=== PATIENT | male | born 1945 | race Caucasian/White ===

== ENCOUNTER 2018-06-22 10:57 | Inpatient (IN) | payer MEDICARE ==
[2018-06-22] MEDS: IPRATROPIUM (NEB) 0.5 MG/2.5 ML AMP INH (11:28)
[2018-06-22] MEDS: ALBUTEROL 0.5% (NEB) 2.5 MG/0.5 ML AMP INH (11:29)
[2018-06-22 11:34] LABS: AADO2 Arterial 206.4 mmHg (7.0-24.0); Allen Test ACCEPTAB; Arterial Base Excess 4.8 mmol/L (-3.0-3); Arterial COHb 0.7 % (0.0-3.0); Arterial Fraction of Oxyhgb 95.1 % (93.0-99.0); Arterial HCO3 27.8 mmol/L (22.0-26.0); Arterial MetHb 0.2 % (0.0-1.5); Arterial pCO2 35.5 mmhg (35-45); MODE HFNC; Site Left Radial
[2018-06-22 11:47] LABS: ADD MAN DIFF? NO
[2018-06-22] MEDS ORDERED: ACETAMINOPHEN 500 MG TAB PO (11:47)
[2018-06-22 11:49] LABS: WHITE BLOOD COUNT 13.1 10^3/ul (4.8-10.8)
[2018-06-22 11:49] LABS: ABNORMAL IP MESSAGE 1; BASOPHILS % 0.2 % (0.0-2.0); EOSINOPHILS % 0.3 % (0.0-7.0); HEMATOCRIT 30.8 % (42.0-52.0); HEMOGLOBIN 9.3 g/dl (14.0-18.0); LYMPHOCYTES # 0.1 10^3/ul (0.8-2.9); LYMPHOCYTES % 0.8 % (15.0-51.0); MEAN CORPUSCULAR HEMOGLOBIN 28.9 pg (29.0-33.0); MEAN CORPUSCULAR HGB CONC 30.2 g/dl (32.0-37.0); MEAN CORPUSCULAR VOLUME 95.7 fl (82.0-101.0); MEAN PLATELET VOLUME 9.4 fl (7.4-10.4); MONOCYTE # 0.2 10^3/ul (0.3-0.9); MONOCYTES % 1.4 % (0.0-11.0); NEUTROPHIL # 12.5 10^3/ul (1.6-7.5); PLATELET COUNT 150 10^3/UL (140-415); POSITIVE DIFF @See below; RED BLOOD COUNT 3.22 10^6/ul (4.70-6.10); RED CELL DISTRIBUTION WIDTH 16.5 % (11.5-14.5)
[2018-06-22] MEDS ORDERED: ACETAMINOPHEN 325 MG TAB PO (12:00)
[2018-06-22] MEDS ORDERED: ONDANSETRON 4 MG INJ IV (12:00)
[2018-06-22] MEDS: METHYLPREDNISOLONE 125 MG INJ IV (12:14)
[2018-06-22] MEDS: IBUPROFEN 800 MG TAB PO (12:14)
[2018-06-22] MEDS: PIPER-TAZO 3.375 GM IV (PMX) 100 ML IVPB ×2 (12:15→22:23)
[2018-06-22 12:18] LABS: INR 1.53; PROTIME 18.7 Sec (11.9-14.9); PT RATIO 1.5
[2018-06-22 12:19] LABS: PARTIAL THROMBOPLASTIN TIME 29.7 Sec (25.0-35.0)
[2018-06-22 12:27] LABS: ALANINE AMINOTRANSFERASE 35 IU/L (13-69); ALBUMIN 2.7 g/dl (3.3-4.9); ALKALINE PHOSPHATASE 265 IU/L (42-121); AMYLASE 159 U/L (11-123); ANION GAP 14 (8-16); ASPARTATE AMINO TRANSFERASE 55 IU/L (15-46); BILIRUBIN,INDIRECT 0.4 mg/dl (0-1.1); BILIRUBIN,TOTAL 0.4 mg/dl (0.2-1.3); BLOOD UREA NITROGEN 37 mg/dl (7-20); CARBON DIOXIDE 31 mmol/L (21-31); CHLORIDE 98 mmol/L (97-110); CREATININE 0.66 mg/dl (0.61-1.24); GLUCOSE 127 mg/dl (70-220); LIPASE 29 U/L (23-300); POTASSIUM 4.2 mmol/L (3.5-5.1); SODIUM 139 mmol/L (135-144); TOTAL PROTEIN 5.4 g/dl (6.1-8.1)
[2018-06-22 12:39] LABS: TROPONIN-I 0.077 ng/ml (0.000-0.120)
[2018-06-22 12:43] LABS: LACTIC ACID 2.9 mmol/L (0.5-2.0)
[2018-06-22] MEDS: VANCOMYCIN 1 GM (PMX) 250 ML IVPB (13:14)
[2018-06-22] MEDS ORDERED: BISACODYL (EC) 5 MG TAB PO (14:00)
[2018-06-22] MEDS ORDERED: VANCOMYCIN IV PER PHARMACY XX (14:30)
[2018-06-22 15:13] LABS: LACTIC ACID 1.3 mmol/L (0.5-2.0)
[2018-06-22] MEDS: VANCOMYCIN 1 GM in 250 ML IVPB (15:37)
[2018-06-22 16:18] LABS: ADD UMIC YES; UR ASCORBIC ACID 20 mg/dL (NEGATIVE); UR BACTERIA FEW /HPF (NONE SEEN); UR BILIRUBIN (Dip) NEGATIVE (NEGATIVE); UR BLOOD (Dip) 3+ mg/dL (NEGATIVE); UR CLARITY CLOUDY (CLEAR); UR COLOR RED (YELLOW); UR GLUCOSE (Dip) 1+ mg/dL (NEGATIVE); UR KETONES (Dip) NEGATIVE (NEGATIVE); UR LEUKOCYTE ESTERASE (Dip) 3+ Leu/ul (NEGATIVE); UR NITRITE (Dip) NEGATIVE (NEGATIVE); UR RBC > 182 /HPF (0-5); UR SPECIFIC GRAVITY (Dip) 1.016 (1.003-1.030); UR TOTAL PROTEIN (Dip) 2+ mg/dl (NEGATIVE); UR UROBILINOGEN (Dip) 1+ mg/dL (NEGATIVE); UR WBC > 182 /HPF (0-5)
[2018-06-22] MEDS: ASCORBIC ACID 500 MG TAB PO (20:22)
[2018-06-22] MEDS: APIXABAN 5 MG TABLET PO (20:23)
[2018-06-22] MEDS: GABAPENTIN 300 MG CAP PO (20:23)
[2018-06-22] MEDS: SENNA TAB PO (20:23)
[2018-06-22] MEDS: FUROSEMIDE 40 MG TAB PO (20:23)
[2018-06-22] MEDS: FERROUS SULFATE (EC) 325 MG TAB PO (20:23)
[2018-06-22] MEDS: TAMSULOSIN (SR) 0.4 MG CAP PO (20:23)
[2018-06-22] MEDS: ISOSORBIDE DINITRATE 20 MG TAB PO (20:24)
[2018-06-22] MEDS: traMADol 50 MG TAB PO (22:24)
[2018-06-23] MEDS: PIPER-TAZO 3.375 GM IV (PMX) 100 ML IVPB ×3 (05:16→22:16)
[2018-06-23] MEDS: VANCOMYCIN 1.5 GM in SOD CHLORIDE 0.9% 250 ML IVPB ×2 (05:52→18:42)
[2018-06-23 06:24] LABS: ADD MAN DIFF? NO
[2018-06-23 06:30] LABS: WHITE BLOOD COUNT 13.5 10^3/ul (4.8-10.8)
[2018-06-23 06:30] LABS: ABNORMAL IP MESSAGE 1; BASOPHILS % 0.1 % (0.0-2.0); HEMATOCRIT 28.9 % (42.0-52.0); HEMOGLOBIN 8.9 g/dl (14.0-18.0); LYMPHOCYTES # 0.3 10^3/ul (0.8-2.9); LYMPHOCYTES % 2.2 % (15.0-51.0); MEAN CORPUSCULAR HEMOGLOBIN 28.9 pg (29.0-33.0); MEAN CORPUSCULAR HGB CONC 30.8 g/dl (32.0-37.0); MEAN CORPUSCULAR VOLUME 93.8 fl (82.0-101.0); MEAN PLATELET VOLUME 10.1 fl (7.4-10.4); MONOCYTE # 0.4 10^3/ul (0.3-0.9); MONOCYTES % 2.7 % (0.0-11.0); NEUTROPHIL # 12.7 10^3/ul (1.6-7.5); NEUTROPHILS % 94.3 % (39.0-77.0); PLATELET COUNT 147 10^3/UL (140-415); POSITIVE DIFF @See below; RED BLOOD COUNT 3.08 10^6/ul (4.70-6.10); RED CELL DISTRIBUTION WIDTH 16.3 % (11.5-14.5)
[2018-06-23] MEDS: traMADol 50 MG TAB PO ×4 (06:53→22:17)
[2018-06-23 07:17] LABS: ANION GAP 9 (8-16); BLOOD UREA NITROGEN 35 mg/dl (7-20); CALCIUM 8.9 mg/dl (8.4-10.2); CARBON DIOXIDE 33 mmol/L (21-31); CHLORIDE 100 mmol/L (97-110); CREATININE 0.66 mg/dl (0.61-1.24); GLUCOSE 113 mg/dl (70-220); MAGNESIUM 2.2 mg/dl (1.7-2.5); PHOSPHORUS 4.9 mg/dl (2.5-4.9); POTASSIUM 3.6 mmol/L (3.5-5.1); SODIUM 138 mmol/L (135-144)
[2018-06-23 07:36] LABS: AADO2 Arterial 127.1 mmHg (7.0-24.0); Allen Test ACCEPTAB; Arterial Base Excess 5.8 mmol/L (-3.0-3); Arterial Blood Gas Oxygen Sat 94.7 mmHG (95.0-100.0); Arterial COHb 0.6 % (0.0-3.0); Arterial Fraction of Oxyhgb 93.8 % (93.0-99.0); Arterial HCO3 30.2 mmol/L (22.0-26.0); Arterial MetHb 0.3 % (0.0-1.5); Arterial Total Hemglobin 10.7 g/dl (12.0-18.0); Blood Gas IEPAP 15/5; Blood Gas PS 10; MODE MASK - BIPAP; Site Right Radial
[2018-06-23] MEDS: DILTIAZEM (CD) 120 MG CAP PO (10:05)
[2018-06-23] MEDS: FINASTERIDE 5 MG TAB PO (10:06)
[2018-06-23] MEDS: FERROUS SULFATE (EC) 325 MG TAB PO ×2 (10:06→20:31)
[2018-06-23] MEDS: ASCORBIC ACID 500 MG TAB PO ×2 (10:06→20:31)
[2018-06-23] MEDS: MULTIVITAMINS THERAPEUTIC TAB PO (10:06)
[2018-06-23] MEDS: DOCUSATE SODIUM 100 MG CAP PO (10:06)
[2018-06-23] MEDS: FUROSEMIDE 40 MG TAB PO ×2 (10:06→20:32)
[2018-06-23] MEDS: ISOSORBIDE DINITRATE 20 MG TAB PO ×2 (10:06→20:31)
[2018-06-23] MEDS: METOPROLOL (XL) 25 MG TAB PO (10:07)
[2018-06-23] MEDS: APIXABAN 5 MG TABLET PO ×2 (10:07→20:32)
[2018-06-23] MEDS: GABAPENTIN 300 MG CAP PO ×3 (10:07→20:31)
[2018-06-23] MEDS: predniSONE 10 MG TAB PO (10:07)
[2018-06-23] MEDS: COLLAGENASE 5 GM (UD JAR) TOP (12:30)
[2018-06-23] MEDS: SENNA TAB PO (20:31)
[2018-06-23] MEDS: TAMSULOSIN (SR) 0.4 MG CAP PO (20:31)
[2018-06-23] MEDS: ALBUTEROL/IPRATROPIUM (NEB) 3 ML AMP HHN (21:13)
[2018-06-24 04:48] LABS: ADD MAN DIFF? NO
[2018-06-24 04:50] LABS: WHITE BLOOD COUNT 15.3 10^3/ul (4.8-10.8)
[2018-06-24 04:50] LABS: BASOPHILS % 0.1 % (0.0-2.0); HEMATOCRIT 28.6 % (42.0-52.0); HEMOGLOBIN 8.8 g/dl (14.0-18.0); LYMPHOCYTES # 0.6 10^3/ul (0.8-2.9); LYMPHOCYTES % 4.1 % (15.0-51.0); MEAN CORPUSCULAR HGB CONC 30.8 g/dl (32.0-37.0); MEAN CORPUSCULAR VOLUME 94.4 fl (82.0-101.0); MONOCYTE # 0.8 10^3/ul (0.3-0.9); MONOCYTES % 5.4 % (0.0-11.0); NEUTROPHIL # 13.7 10^3/ul (1.6-7.5); NEUTROPHILS % 89.4 % (39.0-77.0); PLATELET COUNT 179 10^3/UL (140-415); RED BLOOD COUNT 3.03 10^6/ul (4.70-6.10); RED CELL DISTRIBUTION WIDTH 16.1 % (11.5-14.5)
[2018-06-24] MEDS: PIPER-TAZO 3.375 GM IV (PMX) 100 ML IVPB ×3 (05:10→21:06)
[2018-06-24] MEDS: traMADol 50 MG TAB PO ×2 (05:11→09:12)
[2018-06-24 05:14] LABS: ANION GAP 11 (8-16); BLOOD UREA NITROGEN 40 mg/dl (7-20); CALCIUM 8.9 mg/dl (8.4-10.2); CARBON DIOXIDE 30 mmol/L (21-31); CHLORIDE 100 mmol/L (97-110); GLUCOSE 129 mg/dl (70-220); MAGNESIUM 2.1 mg/dl (1.7-2.5); PHOSPHORUS 3.4 mg/dl (2.5-4.9); POTASSIUM 3.5 mmol/L (3.5-5.1); SODIUM 137 mmol/L (135-144)
[2018-06-24 05:15] LABS: ALANINE AMINOTRANSFERASE 63 IU/L (13-69); ALBUMIN 2.5 g/dl (3.3-4.9); ALBUMIN/GLOBULIN RATIO 0.89; ALKALINE PHOSPHATASE 179 IU/L (42-121); ANION GAP 9 (8-16); ASPARTATE AMINO TRANSFERASE 62 IU/L (15-46); BILIRUBIN,INDIRECT 0.1 mg/dl (0-1.1); BILIRUBIN,TOTAL 0.1 mg/dl (0.2-1.3); BLOOD UREA NITROGEN 38 mg/dl (7-20); CALCIUM 8.9 mg/dl (8.4-10.2); CARBON DIOXIDE 33 mmol/L (21-31); CHLORIDE 100 mmol/L (97-110); CHOL/HDL RATIO 5.9 RATIO; CHOLESTEROL 77 mg/dl (100-200); GLUCOSE 130 mg/dl (70-220); HDL CHOLESTEROL 13 mg/dl (31-75); LDL CHOLESTEROL,CALCULATED 41 mg/dl; POTASSIUM 3.4 mmol/L (3.5-5.1); SODIUM 139 mmol/L (135-144); TOTAL PROTEIN 5.3 g/dl (6.1-8.1); TRIGLYCERIDES 115 mg/dl (0-149)
[2018-06-24 05:22] LABS: B-TYPE NATRIURETIC PEPTIDE 12500 PG/ML (0-125)
[2018-06-24 05:23] LABS: CREATINE KINASE < 20 IU/L (23-200)
[2018-06-24 05:24] LABS: CK-MB 1.89 ng/ml (0.0-2.4); TROPONIN-I 0.066 ng/ml (0.000-0.120)
[2018-06-24 05:24] LABS: VANCOMYCIN,TROUGH 25.3 ug/ml (10.0-20.0)
[2018-06-24 05:28] LABS: FREE T4 (FREE THYROXINE) 0.89 ng/dl (0.78-2.44)
[2018-06-24 05:44] LABS: THYROID STIMULATING HORMONE 0.613 MIU/L (0.465-4.680)
[2018-06-24] MEDS: METOLAZONE 10 MG TAB PO (09:00)
[2018-06-24] MEDS: FINASTERIDE 5 MG TAB PO (09:10)
[2018-06-24] MEDS: MULTIVITAMINS THERAPEUTIC TAB PO (09:10)
[2018-06-24] MEDS: FUROSEMIDE 40 MG TAB PO ×2 (09:10→21:07)
[2018-06-24] MEDS: predniSONE 10 MG TAB PO (09:10)
[2018-06-24] MEDS: LISINOPRIL 5 MG TAB PO (09:11)
[2018-06-24] MEDS: GABAPENTIN 300 MG CAP PO ×3 (09:11→21:08)
[2018-06-24] MEDS: APIXABAN 5 MG TABLET PO ×2 (09:11→21:08)
[2018-06-24] MEDS: ISOSORBIDE DINITRATE 20 MG TAB PO ×2 (09:11→21:08)
[2018-06-24] MEDS: COLLAGENASE 5 GM (UD JAR) TOP (09:11)
[2018-06-24] MEDS: DOCUSATE SODIUM 100 MG CAP PO (09:11)
[2018-06-24] MEDS: ASCORBIC ACID 500 MG TAB PO ×2 (09:11→21:08)
[2018-06-24] MEDS: SPIRONOLACTONE 25 MG TAB PO (09:11)
[2018-06-24] MEDS: FERROUS SULFATE (EC) 325 MG TAB PO ×2 (09:11→21:08)
[2018-06-24] MEDS: METOPROLOL (XL) 25 MG TAB PO (09:11)
[2018-06-24] MEDS: VANCOMYCIN 1 GM 250 ML IVPB (09:12)
[2018-06-24] MEDS: POTASSIUM CHLORIDE (SR) 20 MEQ TAB PO (13:46)
[2018-06-24] MEDS: FLUCONAZOLE 100 MG TAB PO (15:00)
[2018-06-24] MEDS: TAMSULOSIN (SR) 0.4 MG CAP PO (21:08)
[2018-06-24] MEDS: SENNA TAB PO (21:08)
[2018-06-24] MEDS: CASPOFUNGIN 70 MG in SOD CHLORIDE 0.9% 250 ML IVPB (23:48)
[2018-06-25] MEDS: PIPER-TAZO 3.375 GM IV (PMX) 100 ML IVPB ×3 (05:19→21:35)
[2018-06-25] MEDS: traMADol 50 MG TAB PO ×3 (06:19→19:35)
[2018-06-25] MEDS: VANCOMYCIN 1.5 GM in SOD CHLORIDE 0.9% 250 ML IVPB (06:22)
[2018-06-25] MEDS: ISOSORBIDE DINITRATE 20 MG TAB PO ×2 (09:00→20:52)
[2018-06-25] MEDS: LISINOPRIL 5 MG TAB PO (09:00)
[2018-06-25] MEDS: METOPROLOL (XL) 25 MG TAB PO (09:00)
[2018-06-25] MEDS: ASCORBIC ACID 500 MG TAB PO ×2 (09:27→20:51)
[2018-06-25] MEDS: predniSONE 10 MG TAB PO (09:28)
[2018-06-25] MEDS: FINASTERIDE 5 MG TAB PO (09:28)
[2018-06-25] MEDS: GABAPENTIN 300 MG CAP PO ×3 (09:28→20:52)
[2018-06-25] MEDS: MULTIVITAMINS THERAPEUTIC TAB PO (09:28)
[2018-06-25] MEDS: DOCUSATE SODIUM 100 MG CAP PO (09:28)
[2018-06-25] MEDS: FERROUS SULFATE (EC) 325 MG TAB PO ×2 (09:28→20:51)
[2018-06-25] MEDS: APIXABAN 5 MG TABLET PO ×2 (09:28→20:51)
[2018-06-25] MEDS: FUROSEMIDE 40 MG TAB PO (09:29)
[2018-06-25] MEDS: SPIRONOLACTONE 25 MG TAB PO (09:29)
[2018-06-25] MEDS: SODIUM HYPOCHLORITE (1/40) 1 APPLIC BTL IRR (09:29)
[2018-06-25] MEDS: COLLAGENASE 5 GM (UD JAR) TOP (09:30)
[2018-06-25 09:35] LABS: ADD MAN DIFF? NO
[2018-06-25 09:36] LABS: WHITE BLOOD COUNT 11.2 10^3/ul (4.8-10.8)
[2018-06-25 09:36] LABS: BASOPHILS % 0.3 % (0.0-2.0); EOSINOPHILS % 0.4 % (0.0-7.0); HEMATOCRIT 30.7 % (42.0-52.0); HEMOGLOBIN 9.1 g/dl (14.0-18.0); LYMPHOCYTES % 8.5 % (15.0-51.0); MEAN CORPUSCULAR HEMOGLOBIN 28.4 pg (29.0-33.0); MEAN CORPUSCULAR HGB CONC 29.6 g/dl (32.0-37.0); MEAN CORPUSCULAR VOLUME 95.9 fl (82.0-101.0); MEAN PLATELET VOLUME 9.6 fl (7.4-10.4); MONOCYTE # 0.8 10^3/ul (0.3-0.9); MONOCYTES % 7.4 % (0.0-11.0); NEUTROPHIL # 8.9 10^3/ul (1.6-7.5); NEUTROPHILS % 79.7 % (39.0-77.0); NUCLEATED RED BLOOD CELLS% 0.3 /100WBC (0.0-0.0); PLATELET COUNT 177 10^3/UL (140-415); RED CELL DISTRIBUTION WIDTH 16.1 % (11.5-14.5)
[2018-06-25 09:56] LABS: ANION GAP 9 (8-16); BLOOD UREA NITROGEN 37 mg/dl (7-20); CALCIUM 8.8 mg/dl (8.4-10.2); CARBON DIOXIDE 32 mmol/L (21-31); CHLORIDE 101 mmol/L (97-110); CREATININE 0.74 mg/dl (0.61-1.24); GLUCOSE 91 mg/dl (70-220); PHOSPHORUS 3.3 mg/dl (2.5-4.9); POTASSIUM 3.9 mmol/L (3.5-5.1); SODIUM 138 mmol/L (135-144)
[2018-06-25 10:05] LABS: B-TYPE NATRIURETIC PEPTIDE 9300 PG/ML (0-125)
[2018-06-25] MEDS: FUROSEMIDE 20 MG INJ IV (12:26)
[2018-06-25] MEDS: oxyCODONE 5 MG TAB PO (18:02)
[2018-06-25] MEDS: TAMSULOSIN (SR) 0.4 MG CAP PO (20:51)
[2018-06-25] MEDS: SENNA TAB PO (20:52)
[2018-06-25] MEDS: CASPOFUNGIN 50 MG in SOD CHLORIDE 0.9% 250 ML IVPB (23:59)
[2018-06-26] MEDS: traMADol 50 MG TAB PO ×2 (00:08→22:29)
[2018-06-26] MEDS: ALBUTEROL/IPRATROPIUM (NEB) 3 ML AMP HHN (03:02)
[2018-06-26] MEDS: oxyCODONE 5 MG TAB PO (04:13)
[2018-06-26 05:46] LABS: ADD MAN DIFF? NO
[2018-06-26 05:51] LABS: WHITE BLOOD COUNT 12.1 10^3/ul (4.8-10.8)
[2018-06-26 05:51] LABS: BASOPHILS % 0.2 % (0.0-2.0); EOSINOPHILS # 0.1 10^3/ul (0.0-0.5); EOSINOPHILS % 0.7 % (0.0-7.0); HEMATOCRIT 31.4 % (42.0-52.0); HEMOGLOBIN 9.4 g/dl (14.0-18.0); LYMPHOCYTES # 0.9 10^3/ul (0.8-2.9); LYMPHOCYTES % 7.4 % (15.0-51.0); MEAN CORPUSCULAR HEMOGLOBIN 28.5 pg (29.0-33.0); MEAN CORPUSCULAR HGB CONC 29.9 g/dl (32.0-37.0); MEAN CORPUSCULAR VOLUME 95.2 fl (82.0-101.0); MEAN PLATELET VOLUME 9.9 fl (7.4-10.4); MONOCYTE # 0.8 10^3/ul (0.3-0.9); MONOCYTES % 6.3 % (0.0-11.0); NEUTROPHIL # 9.8 10^3/ul (1.6-7.5); NEUTROPHILS % 80.8 % (39.0-77.0); NUCLEATED RED BLOOD CELLS% 0.2 /100WBC (0.0-0.0); PLATELET COUNT 201 10^3/UL (140-415); RED CELL DISTRIBUTION WIDTH 16.2 % (11.5-14.5)
[2018-06-26] MEDS: PIPER-TAZO 3.375 GM IV (PMX) 100 ML IVPB ×3 (06:10→21:39)
[2018-06-26 06:45] LABS: ANION GAP 9 (8-16); BLOOD UREA NITROGEN 29 mg/dl (7-20); CALCIUM 8.8 mg/dl (8.4-10.2); CARBON DIOXIDE 32 mmol/L (21-31); CHLORIDE 101 mmol/L (97-110); CREATININE 0.67 mg/dl (0.61-1.24); GLUCOSE 103 mg/dl (70-220); PHOSPHORUS 2.8 mg/dl (2.5-4.9); POTASSIUM 3.5 mmol/L (3.5-5.1); SODIUM 138 mmol/L (135-144)
[2018-06-26] MEDS: VANCOMYCIN 1.5 GM in SOD CHLORIDE 0.9% 250 ML IVPB (07:07)
[2018-06-26] MEDS: FUROSEMIDE 20 MG INJ IV (09:39)
[2018-06-26] MEDS: APIXABAN 5 MG TABLET PO ×2 (09:39→21:38)
[2018-06-26] MEDS: ISOSORBIDE DINITRATE 20 MG TAB PO ×2 (09:39→21:38)
[2018-06-26] MEDS: METOPROLOL (XL) 25 MG TAB PO (09:39)
[2018-06-26] MEDS: LISINOPRIL 5 MG TAB PO (09:40)
[2018-06-26] MEDS: FERROUS SULFATE (EC) 325 MG TAB PO ×2 (09:40→21:38)
[2018-06-26] MEDS: SPIRONOLACTONE 25 MG TAB PO (09:40)
[2018-06-26] MEDS: GABAPENTIN 300 MG CAP PO ×3 (09:40→21:38)
[2018-06-26] MEDS: DOCUSATE SODIUM 100 MG CAP PO (09:40)
[2018-06-26] MEDS: COLLAGENASE 5 GM (UD JAR) TOP (09:40)
[2018-06-26] MEDS: MULTIVITAMINS THERAPEUTIC TAB PO (09:40)
[2018-06-26] MEDS: predniSONE 10 MG TAB PO (09:40)
[2018-06-26] MEDS: ASCORBIC ACID 500 MG TAB PO ×2 (09:40→21:38)
[2018-06-26] MEDS: FINASTERIDE 5 MG TAB PO (09:40)
[2018-06-26] MEDS: SODIUM HYPOCHLORITE (1/40) 1 APPLIC BTL IRR (09:41)
[2018-06-26] MEDS: TAMSULOSIN (SR) 0.4 MG CAP PO (21:38)
[2018-06-26] MEDS: SENNA TAB PO (21:38)
[2018-06-26] MEDS: CASPOFUNGIN 50 MG in SOD CHLORIDE 0.9% 250 ML IVPB (22:28)
[2018-06-27] MEDS: traMADol 50 MG TAB PO ×2 (04:19→21:49)
[2018-06-27] MEDS: VANCOMYCIN 1.5 GM in SOD CHLORIDE 0.9% 250 ML IVPB (06:06)
[2018-06-27] MEDS: PIPER-TAZO 3.375 GM IV (PMX) 100 ML IVPB ×3 (06:06→21:30)
[2018-06-27 06:23] LABS: ADD MAN DIFF? NO; BASOPHILS % 0.3 % (0.0-2.0); EOSINOPHILS # 0.1 10^3/ul (0.0-0.5); EOSINOPHILS % 0.8 % (0.0-7.0); HEMOGLOBIN 9.3 g/dl (14.0-18.0); LYMPHOCYTES # 1.2 10^3/ul (0.8-2.9); LYMPHOCYTES % 11.4 % (15.0-51.0); MEAN CORPUSCULAR HEMOGLOBIN 28.5 pg (29.0-33.0); MEAN CORPUSCULAR VOLUME 95.1 fl (82.0-101.0); MEAN PLATELET VOLUME 9.5 fl (7.4-10.4); MONOCYTE # 0.5 10^3/ul (0.3-0.9); NEUTROPHIL # 8.2 10^3/ul (1.6-7.5); NEUTROPHILS % 78.1 % (39.0-77.0); PLATELET COUNT 222 10^3/UL (140-415); RED BLOOD COUNT 3.26 10^6/ul (4.70-6.10); RED CELL DISTRIBUTION WIDTH 16.4 % (11.5-14.5)
[2018-06-27 06:23] LABS: WHITE BLOOD COUNT 10.5 10^3/ul (4.8-10.8)
[2018-06-27 07:00] LABS: ANION GAP 8 (8-16); BLOOD UREA NITROGEN 22 mg/dl (7-20); CALCIUM 8.8 mg/dl (8.4-10.2); CARBON DIOXIDE 35 mmol/L (21-31); CHLORIDE 102 mmol/L (97-110); CREATININE 0.64 mg/dl (0.61-1.24); GLUCOSE 83 mg/dl (70-220); PHOSPHORUS 2.7 mg/dl (2.5-4.9); POTASSIUM 3.7 mmol/L (3.5-5.1); SODIUM 141 mmol/L (135-144)
[2018-06-27] MEDS: APIXABAN 5 MG TABLET PO ×2 (08:15→21:30)
[2018-06-27] MEDS: FERROUS SULFATE (EC) 325 MG TAB PO ×2 (08:15→21:29)
[2018-06-27] MEDS: METOPROLOL (XL) 25 MG TAB PO (08:15)
[2018-06-27] MEDS: FUROSEMIDE 20 MG INJ IV (08:15)
[2018-06-27] MEDS: DOCUSATE SODIUM 100 MG CAP PO (08:16)
[2018-06-27] MEDS: LISINOPRIL 5 MG TAB PO (08:16)
[2018-06-27] MEDS: SPIRONOLACTONE 25 MG TAB PO (08:16)
[2018-06-27] MEDS: MULTIVITAMINS THERAPEUTIC TAB PO (08:16)
[2018-06-27] MEDS: predniSONE 10 MG TAB PO (08:16)
[2018-06-27] MEDS: ASCORBIC ACID 500 MG TAB PO ×2 (08:17→21:29)
[2018-06-27] MEDS: FINASTERIDE 5 MG TAB PO (08:17)
[2018-06-27] MEDS: GABAPENTIN 300 MG CAP PO ×3 (08:17→21:29)
[2018-06-27] MEDS: ISOSORBIDE DINITRATE 20 MG TAB PO ×2 (08:17→21:30)
[2018-06-27] MEDS: COLLAGENASE 5 GM (UD JAR) TOP (08:18)
[2018-06-27] MEDS: SODIUM HYPOCHLORITE (1/40) 1 APPLIC BTL IRR (08:19)
[2018-06-27] MEDS: ALBUTEROL/IPRATROPIUM (NEB) 3 ML AMP HHN ×2 (16:00→21:35)
[2018-06-27] MEDS: SENNA TAB PO (21:29)
[2018-06-27] MEDS: TAMSULOSIN (SR) 0.4 MG CAP PO (21:29)
[2018-06-28] MEDS: CASPOFUNGIN 50 MG in SOD CHLORIDE 0.9% 250 ML IVPB ×2 (01:15→23:15)
[2018-06-28] MEDS: traMADol 50 MG TAB PO ×2 (04:43→13:26)
[2018-06-28] MEDS: PIPER-TAZO 3.375 GM IV (PMX) 100 ML IVPB ×3 (05:54→21:13)
[2018-06-28 06:15] LABS: ADD MAN DIFF? NO
[2018-06-28 06:36] LABS: WHITE BLOOD COUNT 10.1 10^3/ul (4.8-10.8)
[2018-06-28 06:36] LABS: BASOPHILS % 0.4 % (0.0-2.0); EOSINOPHILS # 0.1 10^3/ul (0.0-0.5); EOSINOPHILS % 1.1 % (0.0-7.0); HEMATOCRIT 30.3 % (42.0-52.0); HEMOGLOBIN 9.2 g/dl (14.0-18.0); LYMPHOCYTES # 1.6 10^3/ul (0.8-2.9); LYMPHOCYTES % 15.6 % (15.0-51.0); MEAN CORPUSCULAR HEMOGLOBIN 29.1 pg (29.0-33.0); MEAN CORPUSCULAR HGB CONC 30.4 g/dl (32.0-37.0); MEAN CORPUSCULAR VOLUME 95.9 fl (82.0-101.0); MEAN PLATELET VOLUME 9.8 fl (7.4-10.4); MONOCYTE # 0.4 10^3/ul (0.3-0.9); MONOCYTES % 4.3 % (0.0-11.0); NEUTROPHIL # 7.5 10^3/ul (1.6-7.5); NEUTROPHILS % 74.1 % (39.0-77.0); PLATELET COUNT 241 10^3/UL (140-415); RED BLOOD COUNT 3.16 10^6/ul (4.70-6.10); RED CELL DISTRIBUTION WIDTH 16.4 % (11.5-14.5)
[2018-06-28 06:41] LABS: VANCOMYCIN,TROUGH 12.9 ug/ml (10.0-20.0)
[2018-06-28 06:54] LABS: ANION GAP 10 (8-16); BLOOD UREA NITROGEN 20 mg/dl (7-20); CALCIUM 8.8 mg/dl (8.4-10.2); CARBON DIOXIDE 33 mmol/L (21-31); CHLORIDE 100 mmol/L (97-110); CREATININE 0.72 mg/dl (0.61-1.24); GLUCOSE 90 mg/dl (70-220); MAGNESIUM 1.9 mg/dl (1.7-2.5); PHOSPHORUS 2.8 mg/dl (2.5-4.9); POTASSIUM 3.7 mmol/L (3.5-5.1); SODIUM 139 mmol/L (135-144)
[2018-06-28] MEDS: VANCOMYCIN 1.5 GM in SOD CHLORIDE 0.9% 250 ML IVPB (07:03)
[2018-06-28] MEDS: FERROUS SULFATE (EC) 325 MG TAB PO ×2 (09:05→21:13)
[2018-06-28] MEDS: DOCUSATE SODIUM 100 MG CAP PO (09:05)
[2018-06-28] MEDS: COLLAGENASE 5 GM (UD JAR) TOP (09:05)
[2018-06-28] MEDS: ASCORBIC ACID 500 MG TAB PO ×2 (09:05→21:13)
[2018-06-28] MEDS: MULTIVITAMINS THERAPEUTIC TAB PO (09:05)
[2018-06-28] MEDS: GABAPENTIN 300 MG CAP PO ×3 (09:05→21:13)
[2018-06-28] MEDS: predniSONE 10 MG TAB PO (09:05)
[2018-06-28] MEDS: APIXABAN 5 MG TABLET PO ×2 (09:05→21:13)
[2018-06-28] MEDS: SPIRONOLACTONE 25 MG TAB PO (09:05)
[2018-06-28] MEDS: FINASTERIDE 5 MG TAB PO (09:06)
[2018-06-28] MEDS: ISOSORBIDE DINITRATE 20 MG TAB PO ×2 (09:07→21:13)
[2018-06-28] MEDS: LISINOPRIL 5 MG TAB PO (09:07)
[2018-06-28] MEDS: METOPROLOL (XL) 25 MG TAB PO (09:07)
[2018-06-28] MEDS: SODIUM HYPOCHLORITE (1/40) 1 APPLIC BTL IRR (09:11)
[2018-06-28] MEDS: FUROSEMIDE 20 MG INJ IV (09:11)
[2018-06-28] MEDS: SENNA TAB PO (21:13)
[2018-06-28] MEDS: TAMSULOSIN (SR) 0.4 MG CAP PO (21:13)
[2018-06-29] MEDS: ALBUTEROL/IPRATROPIUM (NEB) 3 ML AMP HHN ×2 (02:42→21:35)
[2018-06-29] MEDS: traMADol 50 MG TAB PO ×3 (02:59→22:11)
[2018-06-29] MEDS: PIPER-TAZO 3.375 GM IV (PMX) 100 ML IVPB (05:55)
[2018-06-29] MEDS: VANCOMYCIN 1.5 GM in SOD CHLORIDE 0.9% 250 ML IVPB (06:38)
[2018-06-29] MEDS: MULTIVITAMINS THERAPEUTIC TAB PO (08:36)
[2018-06-29] MEDS: COLLAGENASE 5 GM (UD JAR) TOP (08:36)
[2018-06-29] MEDS: METOPROLOL (XL) 25 MG TAB PO (08:36)
[2018-06-29] MEDS: GABAPENTIN 300 MG CAP PO ×3 (08:37→21:24)
[2018-06-29] MEDS: DOCUSATE SODIUM 100 MG CAP PO (08:37)
[2018-06-29] MEDS: ASCORBIC ACID 500 MG TAB PO ×2 (08:37→21:23)
[2018-06-29] MEDS: APIXABAN 5 MG TABLET PO ×2 (08:37→21:24)
[2018-06-29] MEDS: SPIRONOLACTONE 25 MG TAB PO (08:37)
[2018-06-29] MEDS: LISINOPRIL 5 MG TAB PO (08:37)
[2018-06-29] MEDS: FINASTERIDE 5 MG TAB PO (08:37)
[2018-06-29] MEDS: ISOSORBIDE DINITRATE 20 MG TAB PO ×2 (08:37→21:26)
[2018-06-29] MEDS: predniSONE 10 MG TAB PO (08:37)
[2018-06-29] MEDS: FERROUS SULFATE (EC) 325 MG TAB PO ×2 (08:37→21:24)
[2018-06-29] MEDS: FUROSEMIDE 20 MG INJ IV (08:38)
[2018-06-29] MEDS: SODIUM HYPOCHLORITE (1/40) 1 APPLIC BTL IRR (08:38)
[2018-06-29] MEDS: TAMSULOSIN (SR) 0.4 MG CAP PO (21:24)
[2018-06-29] MEDS: SENNA TAB PO (21:24)
[2018-06-29] MEDS: CASPOFUNGIN 50 MG in SOD CHLORIDE 0.9% 250 ML IVPB (23:11)
[2018-06-30 06:00] LABS: ADD MAN DIFF? NO
[2018-06-30 06:04] LABS: WHITE BLOOD COUNT 10.9 10^3/ul (4.8-10.8)
[2018-06-30 06:04] LABS: BASOPHILS % 0.3 % (0.0-2.0); EOSINOPHILS % 0.4 % (0.0-7.0); HEMATOCRIT 32.2 % (42.0-52.0); HEMOGLOBIN 9.5 g/dl (14.0-18.0); LYMPHOCYTES # 1.4 10^3/ul (0.8-2.9); LYMPHOCYTES % 12.6 % (15.0-51.0); MEAN CORPUSCULAR HEMOGLOBIN 28.5 pg (29.0-33.0); MEAN CORPUSCULAR HGB CONC 29.5 g/dl (32.0-37.0); MEAN CORPUSCULAR VOLUME 96.7 fl (82.0-101.0); MEAN PLATELET VOLUME 9.9 fl (7.4-10.4); MONOCYTE # 0.5 10^3/ul (0.3-0.9); MONOCYTES % 4.5 % (0.0-11.0); NEUTROPHIL # 8.6 10^3/ul (1.6-7.5); NEUTROPHILS % 78.6 % (39.0-77.0); NUCLEATED RED BLOOD CELLS% 0.2 /100WBC (0.0-0.0); PLATELET COUNT 219 10^3/UL (140-415); RED BLOOD COUNT 3.33 10^6/ul (4.70-6.10); RED CELL DISTRIBUTION WIDTH 16.9 % (11.5-14.5)
[2018-06-30] MEDS: VANCOMYCIN 1.5 GM in SOD CHLORIDE 0.9% 250 ML IVPB (06:30)
[2018-06-30 07:25] LABS: ANION GAP 12 (8-16); BLOOD UREA NITROGEN 21 mg/dl (7-20); CARBON DIOXIDE 35 mmol/L (21-31); CHLORIDE 99 mmol/L (97-110); CREATININE 0.58 mg/dl (0.61-1.24); GLUCOSE 89 mg/dl (70-220); PHOSPHORUS 3.6 mg/dl (2.5-4.9); SODIUM 142 mmol/L (135-144)
[2018-06-30] MEDS: FERROUS SULFATE (EC) 325 MG TAB PO ×2 (08:15→21:22)
[2018-06-30] MEDS: SODIUM HYPOCHLORITE (1/40) 1 APPLIC BTL IRR (08:15)
[2018-06-30] MEDS: MULTIVITAMINS THERAPEUTIC TAB PO (08:15)
[2018-06-30] MEDS: DOCUSATE SODIUM 100 MG CAP PO (08:15)
[2018-06-30] MEDS: FUROSEMIDE 20 MG INJ IV (08:15)
[2018-06-30] MEDS: APIXABAN 5 MG TABLET PO ×2 (08:16→21:22)
[2018-06-30] MEDS: predniSONE 10 MG TAB PO (08:16)
[2018-06-30] MEDS: GABAPENTIN 300 MG CAP PO ×3 (08:16→21:22)
[2018-06-30] MEDS: COLLAGENASE 5 GM (UD JAR) TOP (08:16)
[2018-06-30] MEDS: ISOSORBIDE DINITRATE 20 MG TAB PO ×2 (08:16→21:23)
[2018-06-30] MEDS: FINASTERIDE 5 MG TAB PO (08:16)
[2018-06-30] MEDS: LISINOPRIL 5 MG TAB PO (08:16)
[2018-06-30] MEDS: SPIRONOLACTONE 25 MG TAB PO (08:16)
[2018-06-30] MEDS: ASCORBIC ACID 500 MG TAB PO ×2 (08:16→21:23)
[2018-06-30] MEDS: METOPROLOL (XL) 25 MG TAB PO (08:17)
[2018-06-30] MEDS: traMADol 50 MG TAB PO ×2 (11:59→17:18)
[2018-06-30] MEDS: TAMSULOSIN (SR) 0.4 MG CAP PO (21:23)
[2018-06-30] MEDS: SENNA TAB PO (21:23)
[2018-06-30] MEDS: CASPOFUNGIN 50 MG in SOD CHLORIDE 0.9% 250 ML IVPB (22:42)
[2018-07-01] MEDS: traMADol 50 MG TAB PO (00:51)
[2018-07-01] MEDS: VANCOMYCIN 1.5 GM in SOD CHLORIDE 0.9% 250 ML IVPB (05:46)
[2018-07-01 06:50] LABS: ADD MAN DIFF? NO
[2018-07-01 06:59] LABS: WHITE BLOOD COUNT 11.7 10^3/ul (4.8-10.8)
[2018-07-01 06:59] LABS: BASOPHILS % 0.3 % (0.0-2.0); EOSINOPHILS # 0.1 10^3/ul (0.0-0.5); EOSINOPHILS % 0.6 % (0.0-7.0); HEMATOCRIT 33.7 % (42.0-52.0); HEMOGLOBIN 10.2 g/dl (14.0-18.0); LYMPHOCYTES # 1.6 10^3/ul (0.8-2.9); LYMPHOCYTES % 13.4 % (15.0-51.0); MEAN CORPUSCULAR HEMOGLOBIN 29.5 pg (29.0-33.0); MEAN CORPUSCULAR HGB CONC 30.3 g/dl (32.0-37.0); MEAN CORPUSCULAR VOLUME 97.4 fl (82.0-101.0); MEAN PLATELET VOLUME 9.9 fl (7.4-10.4); MONOCYTE # 0.8 10^3/ul (0.3-0.9); MONOCYTES % 6.7 % (0.0-11.0); NEUTROPHIL # 8.9 10^3/ul (1.6-7.5); NEUTROPHILS % 75.7 % (39.0-77.0); NUCLEATED RED BLOOD CELLS% 0.3 /100WBC (0.0-0.0); PLATELET COUNT 246 10^3/UL (140-415); RED BLOOD COUNT 3.46 10^6/ul (4.70-6.10); RED CELL DISTRIBUTION WIDTH 17.2 % (11.5-14.5)
[2018-07-01 07:50] LABS: ANION GAP 11 (8-16); BLOOD UREA NITROGEN 23 mg/dl (7-20); CALCIUM 9.2 mg/dl (8.4-10.2); CARBON DIOXIDE 34 mmol/L (21-31); CHLORIDE 103 mmol/L (97-110); CREATININE 0.66 mg/dl (0.61-1.24); GLUCOSE 88 mg/dl (70-220); PHOSPHORUS 3.4 mg/dl (2.5-4.9); POTASSIUM 4.2 mmol/L (3.5-5.1); SODIUM 144 mmol/L (135-144)
[2018-07-01] MEDS: COLLAGENASE 5 GM (UD JAR) TOP (09:56)
[2018-07-01] MEDS: ISOSORBIDE DINITRATE 20 MG TAB PO ×2 (09:57→22:30)
[2018-07-01] MEDS: METOPROLOL (XL) 25 MG TAB PO (09:57)
[2018-07-01] MEDS: LISINOPRIL 5 MG TAB PO (09:58)
[2018-07-01] MEDS: ASCORBIC ACID 500 MG TAB PO ×2 (09:58→22:30)
[2018-07-01] MEDS: predniSONE 10 MG TAB PO (09:58)
[2018-07-01] MEDS: GABAPENTIN 300 MG CAP PO ×3 (09:58→22:30)
[2018-07-01] MEDS: DOCUSATE SODIUM 100 MG CAP PO (09:58)
[2018-07-01] MEDS: APIXABAN 5 MG TABLET PO ×2 (09:58→21:00)
[2018-07-01] MEDS: oxyCODONE 5 MG TAB PO (09:58)
[2018-07-01] MEDS: FINASTERIDE 5 MG TAB PO (09:58)
[2018-07-01] MEDS: MULTIVITAMINS THERAPEUTIC TAB PO (09:58)
[2018-07-01] MEDS: SPIRONOLACTONE 25 MG TAB PO (09:58)
[2018-07-01] MEDS: FERROUS SULFATE (EC) 325 MG TAB PO ×2 (09:58→22:30)
[2018-07-01] MEDS: SODIUM HYPOCHLORITE (1/40) 1 APPLIC BTL IRR (09:59)
[2018-07-01] MEDS: FUROSEMIDE 20 MG INJ IV (09:59)
[2018-07-01] MEDS: CEFEPIME 1GM/50 ML (PMX) 50 ML IVPB ×2 (15:57→22:31)
[2018-07-01] MEDS: SENNA TAB PO (22:30)
[2018-07-01] MEDS: TAMSULOSIN (SR) 0.4 MG CAP PO (22:31)
[2018-07-02] MEDS: ALBUTEROL/IPRATROPIUM (NEB) 3 ML AMP HHN ×2 (00:21→12:10)
[2018-07-02] MEDS: CASPOFUNGIN 50 MG in SOD CHLORIDE 0.9% 250 ML IVPB (00:44)
[2018-07-02] MEDS: NA PHOSPHATE/BIPHOS 133 ML ENEMA PR (00:48)
[2018-07-02 07:01] LABS: ADD MAN DIFF? NO
[2018-07-02 07:06] LABS: BASOPHIL # 0.1 10^3/ul (0.0-0.1); BASOPHILS % 0.4 % (0.0-2.0); EOSINOPHILS % 0.3 % (0.0-7.0); HEMATOCRIT 35.3 % (42.0-52.0); HEMOGLOBIN 10.5 g/dl (14.0-18.0); LYMPHOCYTES # 1.5 10^3/ul (0.8-2.9); LYMPHOCYTES % 10.2 % (15.0-51.0); MEAN CORPUSCULAR HEMOGLOBIN 29.3 pg (29.0-33.0); MEAN CORPUSCULAR HGB CONC 29.7 g/dl (32.0-37.0); MEAN CORPUSCULAR VOLUME 98.6 fl (82.0-101.0); MEAN PLATELET VOLUME 9.8 fl (7.4-10.4); MONOCYTES % 6.6 % (0.0-11.0); NEUTROPHIL # 11.9 10^3/ul (1.6-7.5); NEUTROPHILS % 80.3 % (39.0-77.0); NUCLEATED RED BLOOD CELLS # 0.1 10^3/ul (0.0-0.0); NUCLEATED RED BLOOD CELLS% 0.4 /100WBC (0.0-0.0); PLATELET COUNT 233 10^3/UL (140-415); RED BLOOD COUNT 3.58 10^6/ul (4.70-6.10); RED CELL DISTRIBUTION WIDTH 17.4 % (11.5-14.5)
[2018-07-02 07:06] LABS: WHITE BLOOD COUNT 14.8 10^3/ul (4.8-10.8)
[2018-07-02 07:21] LABS: VANCOMYCIN,TROUGH 18.8 ug/ml (10.0-20.0)
[2018-07-02 07:47] LABS: ANION GAP 13 (8-16); BLOOD UREA NITROGEN 23 mg/dl (7-20); CALCIUM 9.5 mg/dl (8.4-10.2); CARBON DIOXIDE 33 mmol/L (21-31); CHLORIDE 103 mmol/L (97-110); CREATININE 0.65 mg/dl (0.61-1.24); GLUCOSE 91 mg/dl (70-220); PHOSPHORUS 3.4 mg/dl (2.5-4.9); SODIUM 145 mmol/L (135-144)
[2018-07-02 08:32] LABS: ALANINE AMINOTRANSFERASE 37 IU/L (13-69); ALBUMIN 2.9 g/dl (3.3-4.9); ALKALINE PHOSPHATASE 109 IU/L (42-121); ASPARTATE AMINO TRANSFERASE 42 IU/L (15-46); BILIRUBIN,INDIRECT 0.2 mg/dl (0-1.1); BILIRUBIN,TOTAL 0.2 mg/dl (0.2-1.3); TOTAL PROTEIN 5.5 g/dl (6.1-8.1)
[2018-07-02] MEDS: SODIUM HYPOCHLORITE (1/40) 1 APPLIC BTL IRR (10:20)
[2018-07-02] MEDS: FUROSEMIDE 40 MG INJ IV ×2 (10:20→16:57)
[2018-07-02] MEDS: COLLAGENASE 5 GM (UD JAR) TOP (10:20)
[2018-07-02] MEDS: CEFEPIME 1GM/50 ML (PMX) 50 ML IVPB (10:20)
[2018-07-02] MEDS: SPIRONOLACTONE 25 MG TAB PO (10:21)
[2018-07-02] MEDS: METOPROLOL (XL) 25 MG TAB PO (10:21)
[2018-07-02] MEDS: GABAPENTIN 300 MG CAP PO ×2 (10:21→13:00)
[2018-07-02] MEDS: LISINOPRIL 5 MG TAB PO (10:21)
[2018-07-02] MEDS: APIXABAN 5 MG TABLET PO (10:21)
[2018-07-02] MEDS: FINASTERIDE 5 MG TAB PO (10:22)
[2018-07-02] MEDS: ISOSORBIDE DINITRATE 20 MG TAB PO (10:22)
[2018-07-02] MEDS: MULTIVITAMINS THERAPEUTIC TAB PO (10:22)
[2018-07-02] MEDS: DOCUSATE SODIUM 100 MG CAP PO (10:22)
[2018-07-02] MEDS: predniSONE 10 MG TAB PO (10:23)
[2018-07-02] MEDS: FERROUS SULFATE (EC) 325 MG TAB PO (10:23)
[2018-07-02] MEDS: ASCORBIC ACID 500 MG TAB PO (10:23)
[2018-07-02] MEDS: VANCOMYCIN 1 GM 250 ML IVPB (12:28)
[2018-07-02] MEDS: oxyCODONE 5 MG TAB PO (16:56)
== END 2018-07-02 17:44 | DRG 871 ==
LOC: E/R 10:57 → TEL 11:50
PROC: 5A09458 Assistance with Respiratory Ventilation, 24-96 Consecutive Hours, Intermittent Positive Airway Pressure (ICD-10-PCS; principal; 2018-06-23)
DX: A41.9 Sepsis, unspecified organism (principal); L89.154 Pressure ulcer of sacral region, stage 4; J96.01 Acute respiratory failure with hypoxia; J18.9 Pneumonia, unspecified organism; I50.43 Acute on chronic combined systolic (congestive) and diastolic (congestive) heart failure; E87.2 Acidosis; I13.0 Hypertensive heart and chronic kidney disease with heart failure and stage 1 through stage 4 chronic kidney disease, or unspecified chronic kidney disease; J44.1 Chronic obstructive pulmonary disease with (acute) exacerbation; B49 Unspecified mycosis; L03.319 Cellulitis of trunk, unspecified; N18.3 Chronic kidney disease, stage 3 (moderate); G89.4 Chronic pain syndrome; I25.10 Atherosclerotic heart disease of native coronary artery without angina pectoris; I48.0 Paroxysmal atrial fibrillation; N40.1 Benign prostatic hyperplasia with lower urinary tract symptoms; R33.8 Other retention of urine; N50.89 Other specified disorders of the male genital organs; K80.50 Calculus of bile duct without cholangitis or cholecystitis without obstruction; R65.20 Severe sepsis without septic shock; D64.9 Anemia, unspecified; Z95.5 Presence of coronary angioplasty implant and graft; Z74.01 Bed confinement status; Z95.810 Presence of automatic (implantable) cardiac defibrillator
CPT/HCPCS: 36600; 71045; 74176; 80048; 80053; 80061; 80076; 80202; 81001; 82150; 82550; 82553; 82803; 82962; 83605; 83690; 83735; 83880; 84100; 84439; 84443; 84484; 85025; 85610; 85730; 87040; 87070; 87081; 87086; 92610; 93005; 93306; 94640; 94644; 94660; 94664; 97110; 97162; 97530; 99291-25

== ENCOUNTER 2018-08-20 17:50 | Inpatient (IN) | payer MEDICARE, OTHER ==
[~2018-08-20 17:50] MED LIST: ETOMIDATE 20 MG INJ; SUCCINYLCHOLINE CHLORIDE 100 MG/5 ML SYG IV
[2018-08-20 18:10] LABS: AADO2 Arterial 616.3 mmHg (7.0-24.0); Allen Test ACCEPTAB; Arterial Base Excess 2.3 mmol/L (-3.0-3); Arterial Blood Gas Oxygen Sat 86.9 mmHG (95.0-100.0); Arterial COHb 0.9 % (0.0-3.0); Arterial Fraction of Oxyhgb 85.9 % (93.0-99.0); Arterial HCO3 27.6 mmol/L (22.0-26.0); Arterial MetHb 0.3 % (0.0-1.5); Arterial Total Hemglobin 14.2 g/dl (12.0-18.0); Arterial pCO2 45.5 mmhg (35-45); Blood Gas IEPAP 15/5; Blood Gas PS 10; MODE MASK - BIPAP; Site Right Radial
[2018-08-20] MEDS: NITROGLYCERIN (SL) 0.4 MG TAB SL (18:13)
[2018-08-20] MEDS: SODIUM CHLORIDE 0.9% 1L BAG IV* (18:13)
[2018-08-20] MEDS: CEFEPIME 2GM/50 ML (PMX) 50 ML IVPB (18:13)
[2018-08-20 18:15] LABS: ADD MAN DIFF? NO
[2018-08-20] MEDS: ALBUTEROL 0.5% (NEB) 2.5 MG/0.5 ML AMP INH (18:16)
[2018-08-20 18:20] LABS: WHITE BLOOD COUNT 13.2 10^3/ul (4.8-10.8)
[2018-08-20 18:20] LABS: BASOPHIL # 0.1 10^3/ul (0.0-0.1); BASOPHILS % 0.5 % (0.0-2.0); EOSINOPHILS % 0.2 % (0.0-7.0); HEMATOCRIT 43.3 % (42.0-52.0); HEMOGLOBIN 13.4 g/dl (14.0-18.0); LYMPHOCYTES # 1.1 10^3/ul (0.8-2.9); MEAN CORPUSCULAR HGB CONC 30.9 g/dl (32.0-37.0); MEAN CORPUSCULAR VOLUME 90.4 fl (82.0-101.0); MEAN PLATELET VOLUME 9.2 fl (7.4-10.4); MONOCYTE # 1.2 10^3/ul (0.3-0.9); MONOCYTES % 8.7 % (0.0-11.0); NEUTROPHIL # 10.8 10^3/ul (1.6-7.5); NEUTROPHILS % 82.1 % (39.0-77.0); PLATELET COUNT 296 10^3/UL (140-415); RED BLOOD COUNT 4.79 10^6/ul (4.70-6.10); RED CELL DISTRIBUTION WIDTH 15.6 % (11.5-14.5)
[2018-08-20 18:36] LABS: PARTIAL THROMBOPLASTIN TIME 33.3 Sec (23.0-35.0)
[2018-08-20 18:38] LABS: ALANINE AMINOTRANSFERASE 25 IU/L (13-69); ALBUMIN 3.3 g/dl (3.3-4.9); ALBUMIN/GLOBULIN RATIO 0.84; ALKALINE PHOSPHATASE 160 IU/L (42-121); ANION GAP 12 (5-13); ASPARTATE AMINO TRANSFERASE 36 IU/L (15-46); BILIRUBIN,INDIRECT 0.8 mg/dl (0-1.1); BILIRUBIN,TOTAL 0.8 mg/dl (0.2-1.3); BLOOD UREA NITROGEN 33 mg/dl (7-20); CALCIUM 9.8 mg/dl (8.4-10.2); CARBON DIOXIDE 29 mmol/L (21-31); CHLORIDE 97 mmol/L (97-110); CREATININE 0.85 mg/dl (0.61-1.24); GLUCOSE 181 mg/dl (70-220); SODIUM 138 mmol/L (135-144); TOTAL PROTEIN 7.2 g/dl (6.1-8.1)
[2018-08-20 18:49] LABS: TROPONIN-I 0.048 ng/ml (0.000-0.120)
[2018-08-20 18:51] LABS: INR 1.51; PROTIME 18.5 Sec (11.9-14.9); PT RATIO 1.4
[2018-08-20] MEDS: VANCOMYCIN 1 GM (PMX) 250 ML IVPB (19:04)
[2018-08-20] MEDS ORDERED: IBUPROFEN 600 MG TAB PO (22:00)
[2018-08-20] MEDS ORDERED: PIPER-TAZO 3.375 GM IV (PMX) 100 ML IVPB (22:00)
[2018-08-20] MEDS ORDERED: NA PHOSPHATE/BIPHOS 133 ML ENEMA PR (22:00)
[2018-08-20] MEDS ORDERED: MAGNESIUM HYDROXIDE 30ML CUP PO (22:00)
[2018-08-20] MEDS ORDERED: NACL 0.9% 3 ML SYG IV (22:00)
[2018-08-20] MEDS ORDERED: BISACODYL (EC) 5 MG TAB PO (22:00)
[2018-08-20] MEDS ORDERED: ONDANSETRON 4 MG INJ IV (22:00)
[2018-08-20] MEDS: ALBUTEROL/IPRATROPIUM (NEB) 3 ML AMP NEB (22:27)
[2018-08-20] MEDS ORDERED: PROPOFOL 100 ML (22:49)
[2018-08-20] MEDS: PROPOFOL 100 ML IV (22:57)
[2018-08-20 23:07] LABS: LACTIC ACID 1.7 mmol/L (0.5-2.0)
[2018-08-20] MEDS ORDERED: MIDAZOLAM 5 MG/ML 1 ML ×2 (23:23→23:27)
[2018-08-20] MEDS: MIDAZOLAM 1 MG/ML 5 ML INJ IV (23:40)
[2018-08-20] MEDS: FUROSEMIDE 40 MG INJ IV (23:40)
[2018-08-20] MEDS ORDERED: VANCOMYCIN IV PER PHARMACY XX (23:59)
[2018-08-21] MEDS ORDERED: PROPOFOL 100 ML IV
[2018-08-21 00:04] LABS: AADO2 Arterial 589.6 mmHg (7.0-24.0); Allen Test ACCEPTAB; Arterial Base Excess 0.2 mmol/L (-3.0-3); Arterial Blood Gas Oxygen Sat 95.6 mmHG (95.0-100.0); Arterial COHb 0.3 % (0.0-3.0); Arterial Fraction of Oxyhgb 95.1 % (93.0-99.0); Arterial HCO3 25.3 mmol/L (22.0-26.0); Arterial MetHb 0.2 % (0.0-1.5); Arterial Total Hemglobin 12.3 g/dl (12.0-18.0); Arterial pCO2 43.1 mmhg (35-45); Blood Gas Low PEEP Setting 0 cmH2O; MODE VENT - AC; Site Right Radial
[2018-08-21] MEDS ORDERED: NORepinephrine 8MG/250 ML (PMX 250 ML (00:50)
[2018-08-21] MEDS: PROPOFOL 100 ML IV ×4 (01:00→19:44)
[2018-08-21] MEDS: NORepinephrine 8MG/250 ML (PMX 250 ML IV (01:00)
[2018-08-21] MEDS: SOD CHLORIDE 0.9% 1,000 ML IV ×2 (02:05→10:41)
[2018-08-21 05:06] LABS: ADD MAN DIFF? NO
[2018-08-21 05:08] LABS: ABNORMAL IP MESSAGE 1; BASOPHIL # 0.1 10^3/ul (0.0-0.1); BASOPHILS % 0.3 % (0.0-2.0); HEMATOCRIT 38.5 % (42.0-52.0); HEMOGLOBIN 11.9 g/dl (14.0-18.0); LYMPHOCYTES # 1.2 10^3/ul (0.8-2.9); LYMPHOCYTES % 5.2 % (15.0-51.0); MEAN CORPUSCULAR HEMOGLOBIN 27.9 pg (29.0-33.0); MEAN CORPUSCULAR HGB CONC 30.9 g/dl (32.0-37.0); MEAN CORPUSCULAR VOLUME 90.2 fl (82.0-101.0); MEAN PLATELET VOLUME 9.4 fl (7.4-10.4); MONOCYTE # 1.8 10^3/ul (0.3-0.9); MONOCYTES % 7.8 % (0.0-11.0); NEUTROPHIL # 19.8 10^3/ul (1.6-7.5); NEUTROPHILS % 85.9 % (39.0-77.0); PLATELET COUNT 276 10^3/UL (140-415); POSITIVE DIFF @See below; RED BLOOD COUNT 4.27 10^6/ul (4.70-6.10); RED CELL DISTRIBUTION WIDTH 15.7 % (11.5-14.5)
[2018-08-21 05:08] LABS: WHITE BLOOD COUNT 23.1 10^3/ul (4.8-10.8)
[2018-08-21 05:46] LABS: ANION GAP 11 (5-13); BLOOD UREA NITROGEN 33 mg/dl (7-20); CALCIUM 9.1 mg/dl (8.4-10.2); CARBON DIOXIDE 25 mmol/L (21-31); CHLORIDE 105 mmol/L (97-110); GLUCOSE 118 mg/dl (70-220); POTASSIUM 3.4 mmol/L (3.5-5.1); SODIUM 141 mmol/L (135-144)
[2018-08-21] MEDS: POTASSIUM CHLORIDE 20 MEQ POWDER FOR ORAL SOLN GTB (07:04)
[2018-08-21 07:34] LABS: LACTIC ACID 1.3 mmol/L (0.5-2.0)
[2018-08-21] MEDS: ENOXAPARIN 40 MG/0.4 ML SYG SC (08:21)
[2018-08-21] MEDS: ASCORBIC ACID 500 MG TAB PO ×2 (09:28→20:36)
[2018-08-21] MEDS: MULTIVITAMINS THERAPEUTIC TAB PO (09:28)
[2018-08-21] MEDS: FAMOTIDINE 20 MG TAB PO ×2 (09:28→20:36)
[2018-08-21] MEDS: FINASTERIDE 5 MG TAB PO (09:28)
[2018-08-21] MEDS: FERROUS SULFATE (EC) 325 MG TAB PO ×2 (09:28→20:36)
[2018-08-21 10:03] LABS: AADO2 Arterial 465.8 mmHg (7.0-24.0); Allen Test ACCEPTAB; Arterial Base Excess -0.2 mmol/L (-3.0-3); Arterial Blood Gas Oxygen Sat 98.8 mmHG (95.0-100.0); Arterial COHb 0.1 % (0.0-3.0); Arterial Fraction of Oxyhgb 98.4 % (93.0-99.0); Arterial HCO3 23.4 mmol/L (22.0-26.0); Arterial MetHb 0.3 % (0.0-1.5); Arterial Total Hemglobin 12.1 g/dl (12.0-18.0); Arterial pCO2 34.9 mmhg (35-45); MODE VENT - AC; Site Right Radial
[2018-08-21] MEDS: VANCOMYCIN 1.5 GM in SOD CHLORIDE 0.9% 250 ML IVPB (12:55)
[2018-08-21] MEDS ORDERED: FUROSEMIDE 20 MG INJ IM (13:30)
[2018-08-21] MEDS: FUROSEMIDE 20 MG INJ IV (14:06)
[2018-08-21] MEDS: SOD CHLORIDE 0.9% 100 ML (15:41)
[2018-08-21] MEDS: IOHEXOL 100 ML (15:42)
[2018-08-21] MEDS: ASPIRIN 81 MG TAB NGT (17:38)
[2018-08-21] MEDS: TAMSULOSIN (SR) 0.4 MG CAP PO (20:36)
[2018-08-21] MEDS: PIPER-TAZO 3.375 GM IV (PMX) 100 ML IVPB (22:01)
[2018-08-22] MEDS: PROPOFOL 100 ML IV ×5 (01:45→22:17)
[2018-08-22 05:16] LABS: ADD MAN DIFF? NO
[2018-08-22 05:20] LABS: WHITE BLOOD COUNT 16.6 10^3/ul (4.8-10.8)
[2018-08-22 05:20] LABS: BASOPHIL # 0.1 10^3/ul (0.0-0.1); BASOPHILS % 0.4 % (0.0-2.0); EOSINOPHILS # 0.1 10^3/ul (0.0-0.5); EOSINOPHILS % 0.4 % (0.0-7.0); HEMATOCRIT 36.9 % (42.0-52.0); HEMOGLOBIN 11.5 g/dl (14.0-18.0); LYMPHOCYTES # 0.9 10^3/ul (0.8-2.9); LYMPHOCYTES % 5.3 % (15.0-51.0); MEAN CORPUSCULAR HGB CONC 31.2 g/dl (32.0-37.0); MEAN CORPUSCULAR VOLUME 89.8 fl (82.0-101.0); MEAN PLATELET VOLUME 9.6 fl (7.4-10.4); MONOCYTE # 1.4 10^3/ul (0.3-0.9); MONOCYTES % 8.6 % (0.0-11.0); NEUTROPHIL # 14.1 10^3/ul (1.6-7.5); NEUTROPHILS % 84.8 % (39.0-77.0); PLATELET COUNT 250 10^3/UL (140-415); RED BLOOD COUNT 4.11 10^6/ul (4.70-6.10); RED CELL DISTRIBUTION WIDTH 15.7 % (11.5-14.5)
[2018-08-22] MEDS: PIPER-TAZO 3.375 GM IV (PMX) 100 ML IVPB ×4 (05:42→23:57)
[2018-08-22 05:46] LABS: ANION GAP 8 (5-13); BLOOD UREA NITROGEN 29 mg/dl (7-20); CALCIUM 9.5 mg/dl (8.4-10.2); CARBON DIOXIDE 26 mmol/L (21-31); CHLORIDE 110 mmol/L (97-110); CREATININE 0.83 mg/dl (0.61-1.24); GLUCOSE 120 mg/dl (70-220); MAGNESIUM 2.2 mg/dl (1.7-2.5); PHOSPHORUS 3.2 mg/dl (2.5-4.9); POTASSIUM 3.2 mmol/L (3.5-5.1); SODIUM 144 mmol/L (135-144)
[2018-08-22] MEDS: POTASSIUM CHLORIDE 20 MEQ POWDER FOR ORAL SOLN NGT ×2 (07:06)
[2018-08-22] MEDS: FUROSEMIDE 20 MG INJ IV (09:31)
[2018-08-22] MEDS: ASPIRIN 81 MG TAB NGT (09:32)
[2018-08-22] MEDS: FERROUS SULFATE (EC) 325 MG TAB PO ×2 (09:32→20:49)
[2018-08-22] MEDS: FINASTERIDE 5 MG TAB PO (09:32)
[2018-08-22] MEDS: ASCORBIC ACID 500 MG TAB PO ×2 (09:32→20:49)
[2018-08-22] MEDS: FAMOTIDINE 20 MG TAB PO ×2 (09:32→20:49)
[2018-08-22] MEDS: MULTIVITAMINS THERAPEUTIC TAB PO (09:32)
[2018-08-22] MEDS: ENOXAPARIN 40 MG/0.4 ML SYG SC (09:33)
[2018-08-22] MEDS: POTASSIUM CHLORIDE 20 MEQ POWDER FOR ORAL SOLN GTB (11:47)
[2018-08-22] MEDS: VANCOMYCIN 1.5 GM in SOD CHLORIDE 0.9% 250 ML IVPB (14:25)
[2018-08-22] MEDS: MUPIROCIN 2% 22 GM OINT TOP (20:49)
[2018-08-22] MEDS: TAMSULOSIN (SR) 0.4 MG CAP PO (20:49)
[2018-08-23 04:06] LABS: ADD UMIC YES; UR ASCORBIC ACID 40 mg/dL (NEGATIVE); UR BILIRUBIN (Dip) NEGATIVE (NEGATIVE); UR BLOOD (Dip) NEGATIVE (NEGATIVE); UR CLARITY SLIGHTLY CLOUDY (CLEAR); UR COLOR YELLOW (YELLOW); UR GLUCOSE (Dip) NEGATIVE (NEGATIVE); UR KETONES (Dip) NEGATIVE (NEGATIVE); UR LEUKOCYTE ESTERASE (Dip) TRACE Leu/ul (NEGATIVE); UR MUCUS FEW /HPF (NONE SEEN); UR NITRITE (Dip) NEGATIVE (NEGATIVE); UR RBC 2 /HPF (0-5); UR SPECIFIC GRAVITY (Dip) 1.026 (1.003-1.030); UR TOTAL PROTEIN (Dip) NEGATIVE (NEGATIVE); UR UROBILINOGEN (Dip) NEGATIVE (NEGATIVE); UR WBC 1 /HPF (0-5)
[2018-08-23 04:36] LABS: SODIUM,URINE RANDOM 28 mmol/L (30-90)
[2018-08-23 04:36] LABS: CREATININE,URINE RANDOM 67.36 mg/dl (20-370)
[2018-08-23] MEDS: PROPOFOL 100 ML IV ×4 (04:59→21:58)
[2018-08-23 05:36] LABS: ADD MAN DIFF? NO
[2018-08-23 05:43] LABS: WHITE BLOOD COUNT 15.8 10^3/ul (4.8-10.8)
[2018-08-23 05:43] LABS: BASOPHIL # 0.1 10^3/ul (0.0-0.1); BASOPHILS % 0.5 % (0.0-2.0); EOSINOPHILS # 0.1 10^3/ul (0.0-0.5); EOSINOPHILS % 0.6 % (0.0-7.0); HEMATOCRIT 34.9 % (42.0-52.0); HEMOGLOBIN 10.8 g/dl (14.0-18.0); LYMPHOCYTES % 6.3 % (15.0-51.0); MEAN CORPUSCULAR HEMOGLOBIN 27.8 pg (29.0-33.0); MEAN CORPUSCULAR HGB CONC 30.9 g/dl (32.0-37.0); MEAN CORPUSCULAR VOLUME 89.7 fl (82.0-101.0); MEAN PLATELET VOLUME 9.6 fl (7.4-10.4); MONOCYTE # 1.3 10^3/ul (0.3-0.9); NEUTROPHIL # 13.3 10^3/ul (1.6-7.5); PLATELET COUNT 236 10^3/UL (140-415); RED BLOOD COUNT 3.89 10^6/ul (4.70-6.10)
[2018-08-23 06:18] LABS: ANION GAP 7 (5-13); BLOOD UREA NITROGEN 28 mg/dl (7-20); CALCIUM 9.4 mg/dl (8.4-10.2); CARBON DIOXIDE 25 mmol/L (21-31); CHLORIDE 114 mmol/L (97-110); CREATININE 0.78 mg/dl (0.61-1.24); GLUCOSE 118 mg/dl (70-220); MAGNESIUM 2.4 mg/dl (1.7-2.5); PHOSPHORUS 3.4 mg/dl (2.5-4.9); POTASSIUM 3.7 mmol/L (3.5-5.1); SODIUM 146 mmol/L (135-144)
[2018-08-23] MEDS: PIPER-TAZO 3.375 GM IV (PMX) 100 ML IVPB ×4 (06:28→23:54)
[2018-08-23] MEDS: FAMOTIDINE 20 MG TAB PO ×2 (08:38→20:29)
[2018-08-23] MEDS: ASPIRIN 81 MG TAB NGT (08:38)
[2018-08-23] MEDS: MULTIVITAMINS THERAPEUTIC TAB PO (08:38)
[2018-08-23] MEDS: ASCORBIC ACID 500 MG TAB PO ×2 (08:39→20:29)
[2018-08-23] MEDS: FUROSEMIDE 20 MG INJ IV (08:39)
[2018-08-23] MEDS: FINASTERIDE 5 MG TAB PO (08:39)
[2018-08-23] MEDS: FERROUS SULFATE (EC) 325 MG TAB PO ×2 (08:39→20:29)
[2018-08-23] MEDS: MUPIROCIN 2% 22 GM OINT TOP ×2 (08:39→20:29)
[2018-08-23] MEDS: ENOXAPARIN 40 MG/0.4 ML SYG SC (08:41)
[2018-08-23] MEDS: VANCOMYCIN 1.5 GM in SOD CHLORIDE 0.9% 250 ML IVPB (13:01)
[2018-08-23] MEDS: TAMSULOSIN (SR) 0.4 MG CAP PO (20:29)
[2018-08-24] MEDS: PROPOFOL 100 ML IV (04:15)
[2018-08-24 05:02] LABS: WHITE BLOOD COUNT 11.3 10^3/ul (4.8-10.8)
[2018-08-24 05:02] LABS: ADD MAN DIFF? NO; BASOPHIL # 0.1 10^3/ul (0.0-0.1); BASOPHILS % 0.7 % (0.0-2.0); EOSINOPHILS # 0.2 10^3/ul (0.0-0.5); EOSINOPHILS % 1.5 % (0.0-7.0); HEMATOCRIT 35.8 % (42.0-52.0); LYMPHOCYTES # 1.3 10^3/ul (0.8-2.9); LYMPHOCYTES % 11.3 % (15.0-51.0); MEAN CORPUSCULAR HEMOGLOBIN 27.6 pg (29.0-33.0); MEAN CORPUSCULAR HGB CONC 30.7 g/dl (32.0-37.0); MEAN CORPUSCULAR VOLUME 89.7 fl (82.0-101.0); MEAN PLATELET VOLUME 9.1 fl (7.4-10.4); MONOCYTE # 0.9 10^3/ul (0.3-0.9); MONOCYTES % 7.8 % (0.0-11.0); NEUTROPHIL # 8.8 10^3/ul (1.6-7.5); PLATELET COUNT 240 10^3/UL (140-415); RED BLOOD COUNT 3.99 10^6/ul (4.70-6.10); RED CELL DISTRIBUTION WIDTH 15.9 % (11.5-14.5)
[2018-08-24 05:32] LABS: ANION GAP 9 (5-13); BLOOD UREA NITROGEN 26 mg/dl (7-20); CALCIUM 9.6 mg/dl (8.4-10.2); CARBON DIOXIDE 26 mmol/L (21-31); CHLORIDE 114 mmol/L (97-110); CREATININE 0.77 mg/dl (0.61-1.24); GLUCOSE 116 mg/dl (70-220); MAGNESIUM 2.3 mg/dl (1.7-2.5); PHOSPHORUS 3.7 mg/dl (2.5-4.9); POTASSIUM 3.2 mmol/L (3.5-5.1); SODIUM 149 mmol/L (135-144)
[2018-08-24] MEDS: PIPER-TAZO 3.375 GM IV (PMX) 100 ML IVPB ×3 (06:19→18:28)
[2018-08-24] MEDS ORDERED: POTASSIUM CHLORIDE 20 MEQ POWDER FOR ORAL SOLN NGT (08:05)
[2018-08-24] MEDS: ENOXAPARIN 40 MG/0.4 ML SYG SC (09:36)
[2018-08-24] MEDS: ASCORBIC ACID 500 MG TAB PO ×2 (09:37→20:53)
[2018-08-24] MEDS: FAMOTIDINE 20 MG TAB PO ×2 (09:37→20:53)
[2018-08-24] MEDS: ASPIRIN 81 MG TAB NGT (09:37)
[2018-08-24] MEDS: MULTIVITAMINS THERAPEUTIC TAB PO (09:37)
[2018-08-24] MEDS: MUPIROCIN 2% 22 GM OINT TOP ×2 (09:37→20:52)
[2018-08-24] MEDS: FINASTERIDE 5 MG TAB PO (09:37)
[2018-08-24] MEDS: FERROUS SULFATE (EC) 325 MG TAB PO ×2 (09:37→20:53)
[2018-08-24] MEDS: FUROSEMIDE 20 MG INJ IV (09:37)
[2018-08-24] MEDS: POTASSIUM CHLORIDE 20 MEQ POWDER FOR ORAL SOLN GTB (09:38)
[2018-08-24 09:44] LABS: AADO2 Arterial 120.1 mmHg (7.0-24.0); Allen Test ACCEPTAB; Arterial Base Excess 0.9 mmol/L (-3.0-3); Arterial Blood Gas Oxygen Sat 96.6 mmHG (95.0-100.0); Arterial COHb 0.5 % (0.0-3.0); Arterial Fraction of Oxyhgb 95.8 % (93.0-99.0); Arterial HCO3 25.1 mmol/L (22.0-26.0); Arterial MetHb 0.3 % (0.0-1.5); Arterial Total Hemglobin 12.7 g/dl (12.0-18.0); Arterial pCO2 38.7 mmhg (35-45); Blood Gas PS 10; MODE VENT - CPAP; Site Right Radial
[2018-08-24] MEDS: morphine 2 MG INJ IV ×3 (12:44→22:18)
[2018-08-24 12:47] LABS: VANCOMYCIN,TROUGH 12.8 ug/ml (10.0-20.0)
[2018-08-24] MEDS: DEXTROSE 5% 1,000 ML IV (14:02)
[2018-08-24 14:21] LABS: ANION GAP 11 (5-13); BLOOD UREA NITROGEN 26 mg/dl (7-20); CALCIUM 9.8 mg/dl (8.4-10.2); CARBON DIOXIDE 22 mmol/L (21-31); CHLORIDE 116 mmol/L (97-110); CREATININE 0.82 mg/dl (0.61-1.24); GLUCOSE 125 mg/dl (70-220); POTASSIUM 3.7 mmol/L (3.5-5.1); SODIUM 149 mmol/L (135-144)
[2018-08-24] MEDS: VANCOMYCIN 1.5 GM in SOD CHLORIDE 0.9% 250 ML IVPB (14:50)
[2018-08-24 15:21] LABS: CREATININE, RANDOM URINE 62 mg/dL (20-320); MICROALBUMIN/CREATININE RATIO 32 (<30)
[2018-08-24] MEDS: TAMSULOSIN (SR) 0.4 MG CAP PO (20:53)
[2018-08-25] MEDS: PIPER-TAZO 3.375 GM IV (PMX) 100 ML IVPB ×4 (00:38→18:16)
[2018-08-25] MEDS: morphine 2 MG INJ IV ×3 (04:01→14:33)
[2018-08-25 05:03] LABS: ADD MAN DIFF? NO
[2018-08-25 05:07] LABS: BASOPHIL # 0.1 10^3/ul (0.0-0.1); BASOPHILS % 0.8 % (0.0-2.0); EOSINOPHILS # 0.1 10^3/ul (0.0-0.5); EOSINOPHILS % 1.1 % (0.0-7.0); HEMATOCRIT 35.2 % (42.0-52.0); HEMOGLOBIN 10.4 g/dl (14.0-18.0); LYMPHOCYTES # 1.3 10^3/ul (0.8-2.9); LYMPHOCYTES % 12.7 % (15.0-51.0); MEAN CORPUSCULAR HEMOGLOBIN 27.3 pg (29.0-33.0); MEAN CORPUSCULAR HGB CONC 29.5 g/dl (32.0-37.0); MEAN CORPUSCULAR VOLUME 92.4 fl (82.0-101.0); MEAN PLATELET VOLUME 9.6 fl (7.4-10.4); MONOCYTE # 0.7 10^3/ul (0.3-0.9); MONOCYTES % 7.2 % (0.0-11.0); NEUTROPHIL # 7.8 10^3/ul (1.6-7.5); NEUTROPHILS % 77.5 % (39.0-77.0); PLATELET COUNT 235 10^3/UL (140-415); RED BLOOD COUNT 3.81 10^6/ul (4.70-6.10); RED CELL DISTRIBUTION WIDTH 15.9 % (11.5-14.5)
[2018-08-25 05:41] LABS: ANION GAP 8 (5-13); BLOOD UREA NITROGEN 28 mg/dl (7-20); CALCIUM 9.4 mg/dl (8.4-10.2); CARBON DIOXIDE 24 mmol/L (21-31); CHLORIDE 116 mmol/L (97-110); CREATININE 0.76 mg/dl (0.61-1.24); GLUCOSE 92 mg/dl (70-220); MAGNESIUM 2.2 mg/dl (1.7-2.5); PHOSPHORUS 3.8 mg/dl (2.5-4.9); POTASSIUM 3.6 mmol/L (3.5-5.1); SODIUM 148 mmol/L (135-144)
[2018-08-25] MEDS: FINASTERIDE 5 MG TAB PO (07:59)
[2018-08-25] MEDS: FAMOTIDINE 20 MG TAB PO ×2 (07:59→22:11)
[2018-08-25] MEDS: FUROSEMIDE 20 MG INJ IV (07:59)
[2018-08-25] MEDS: ASPIRIN 81 MG TAB NGT (07:59)
[2018-08-25] MEDS: FERROUS SULFATE (EC) 325 MG TAB PO ×2 (07:59→22:11)
[2018-08-25] MEDS: MULTIVITAMINS THERAPEUTIC TAB PO (08:00)
[2018-08-25] MEDS: ASCORBIC ACID 500 MG TAB PO ×2 (08:00→22:11)
[2018-08-25] MEDS: ENOXAPARIN 40 MG/0.4 ML SYG SC (08:01)
[2018-08-25 08:21] LABS: PROCALCITONIN 0.97 ng/mL (<0.10)
[2018-08-25] MEDS: MUPIROCIN 2% 22 GM OINT TOP ×2 (08:53→21:00)
[2018-08-25] MEDS: D5W + KCL 20 MEQ 1,000 ML IV ×2 (09:05→22:20)
[2018-08-25] MEDS: VANCOMYCIN 1.5 GM in SOD CHLORIDE 0.9% 250 ML IVPB (13:48)
[2018-08-25] MEDS: TAMSULOSIN (SR) 0.4 MG CAP PO (22:11)
[2018-08-26] MEDS: D5W + KCL 20 MEQ 1,000 ML IV ×2 (04:50→23:58)
[2018-08-26] MEDS: PIPER-TAZO 3.375 GM IV (PMX) 100 ML IVPB ×5 (05:17→23:59)
[2018-08-26 06:18] LABS: ADD MAN DIFF? NO
[2018-08-26 06:26] LABS: WHITE BLOOD COUNT 8.7 10^3/ul (4.8-10.8)
[2018-08-26 06:26] LABS: BASOPHIL # 0.1 10^3/ul (0.0-0.1); BASOPHILS % 1.1 % (0.0-2.0); EOSINOPHILS # 0.1 10^3/ul (0.0-0.5); EOSINOPHILS % 1.6 % (0.0-7.0); HEMATOCRIT 37.8 % (42.0-52.0); HEMOGLOBIN 11.6 g/dl (14.0-18.0); LYMPHOCYTES # 1.4 10^3/ul (0.8-2.9); LYMPHOCYTES % 15.6 % (15.0-51.0); MEAN CORPUSCULAR HEMOGLOBIN 27.7 pg (29.0-33.0); MEAN CORPUSCULAR HGB CONC 30.7 g/dl (32.0-37.0); MEAN CORPUSCULAR VOLUME 90.2 fl (82.0-101.0); MEAN PLATELET VOLUME 9.9 fl (7.4-10.4); MONOCYTE # 0.5 10^3/ul (0.3-0.9); MONOCYTES % 6.2 % (0.0-11.0); NEUTROPHIL # 6.5 10^3/ul (1.6-7.5); NEUTROPHILS % 74.7 % (39.0-77.0); PLATELET COUNT 269 10^3/UL (140-415); RED BLOOD COUNT 4.19 10^6/ul (4.70-6.10); RED CELL DISTRIBUTION WIDTH 15.6 % (11.5-14.5)
[2018-08-26 06:35] LABS: ANION GAP 9 (5-13); BLOOD UREA NITROGEN 25 mg/dl (7-20); CALCIUM 9.6 mg/dl (8.4-10.2); CARBON DIOXIDE 24 mmol/L (21-31); CHLORIDE 111 mmol/L (97-110); CREATININE 0.73 mg/dl (0.61-1.24); GLUCOSE 103 mg/dl (70-220); MAGNESIUM 2.1 mg/dl (1.7-2.5); PHOSPHORUS 3.5 mg/dl (2.5-4.9); POTASSIUM 3.6 mmol/L (3.5-5.1); SODIUM 144 mmol/L (135-144)
[2018-08-26] MEDS: FERROUS SULFATE (EC) 325 MG TAB PO ×2 (08:53→21:23)
[2018-08-26] MEDS: ASPIRIN 81 MG TAB NGT (08:53)
[2018-08-26] MEDS: FINASTERIDE 5 MG TAB PO (08:53)
[2018-08-26] MEDS: FUROSEMIDE 20 MG INJ IV (08:53)
[2018-08-26] MEDS: MULTIVITAMINS THERAPEUTIC TAB PO (08:54)
[2018-08-26] MEDS: FAMOTIDINE 20 MG TAB PO ×2 (08:54→21:24)
[2018-08-26] MEDS: ASCORBIC ACID 500 MG TAB PO ×2 (08:54→21:23)
[2018-08-26] MEDS: METOPROLOL (XL) 25 MG TAB PO (08:54)
[2018-08-26] MEDS: MUPIROCIN 2% 22 GM OINT TOP ×3 (09:00→21:24)
[2018-08-26] MEDS: ENOXAPARIN 40 MG/0.4 ML SYG SC (09:13)
[2018-08-26] MEDS: VANCOMYCIN 1.5 GM in SOD CHLORIDE 0.9% 250 ML IVPB (12:28)
[2018-08-26] MEDS ORDERED: PENDING SANTYL ORDER FOR WOUND CARE XX (13:00)
[2018-08-26] MEDS: morphine 2 MG INJ IV ×3 (13:39→21:32)
[2018-08-26] MEDS: TAMSULOSIN (SR) 0.4 MG CAP PO (21:24)
[2018-08-26] MEDS: COLLAGENASE 5 GM (UD JAR) TOP (22:24)
[2018-08-27] MEDS: morphine 2 MG INJ IV ×6 (02:12→23:13)
[2018-08-27] MEDS: PIPER-TAZO 3.375 GM IV (PMX) 100 ML IVPB ×4 (06:06→23:18)
[2018-08-27] MEDS: FAMOTIDINE 20 MG TAB PO ×2 (08:43→21:19)
[2018-08-27] MEDS: FINASTERIDE 5 MG TAB PO (08:43)
[2018-08-27] MEDS: FUROSEMIDE 20 MG INJ IV (08:43)
[2018-08-27] MEDS: ASPIRIN 81 MG TAB NGT (08:43)
[2018-08-27] MEDS: METOPROLOL (XL) 25 MG TAB PO (08:43)
[2018-08-27] MEDS: FERROUS SULFATE (EC) 325 MG TAB PO ×2 (08:43→21:19)
[2018-08-27] MEDS: MUPIROCIN 2% 22 GM OINT TOP ×2 (08:44→21:20)
[2018-08-27] MEDS: MULTIVITAMINS THERAPEUTIC TAB PO (08:44)
[2018-08-27] MEDS: ASCORBIC ACID 500 MG TAB PO ×2 (08:44→21:19)
[2018-08-27] MEDS: COLLAGENASE 5 GM (UD JAR) TOP ×3 (08:44→21:20)
[2018-08-27] MEDS: ENOXAPARIN 40 MG/0.4 ML SYG SC (08:53)
[2018-08-27] MEDS: PENDING SANTYL ORDER FOR WOUND CARE XX (09:13)
[2018-08-27] MEDS: VANCOMYCIN 1.5 GM in SOD CHLORIDE 0.9% 250 ML IVPB (12:39)
[2018-08-27] MEDS: D5W + KCL 20 MEQ 1,000 ML IV (14:06)
[2018-08-27] MEDS: TAMSULOSIN (SR) 0.4 MG CAP PO (21:19)
[2018-08-28] MEDS: morphine 2 MG INJ IV ×5 (03:57→22:06)
[2018-08-28] MEDS: D5W + KCL 20 MEQ 1,000 ML IV ×3 (05:07→23:41)
[2018-08-28] MEDS: PIPER-TAZO 3.375 GM IV (PMX) 100 ML IVPB ×4 (05:11→23:41)
[2018-08-28 05:45] LABS: ADD MAN DIFF? NO
[2018-08-28 05:54] LABS: BASOPHIL # 0.1 10^3/ul (0.0-0.1); BASOPHILS % 0.7 % (0.0-2.0); EOSINOPHILS # 0.1 10^3/ul (0.0-0.5); EOSINOPHILS % 1.6 % (0.0-7.0); HEMOGLOBIN 11.3 g/dl (14.0-18.0); LYMPHOCYTES # 1.5 10^3/ul (0.8-2.9); LYMPHOCYTES % 16.3 % (15.0-51.0); MEAN CORPUSCULAR HEMOGLOBIN 27.1 pg (29.0-33.0); MEAN CORPUSCULAR HGB CONC 30.5 g/dl (32.0-37.0); MEAN CORPUSCULAR VOLUME 88.7 fl (82.0-101.0); MEAN PLATELET VOLUME 9.5 fl (7.4-10.4); MONOCYTE # 0.6 10^3/ul (0.3-0.9); MONOCYTES % 6.2 % (0.0-11.0); NEUTROPHIL # 6.6 10^3/ul (1.6-7.5); NEUTROPHILS % 73.9 % (39.0-77.0); PLATELET COUNT 249 10^3/UL (140-415); RED BLOOD COUNT 4.17 10^6/ul (4.70-6.10); RED CELL DISTRIBUTION WIDTH 15.3 % (11.5-14.5)
[2018-08-28 05:54] LABS: WHITE BLOOD COUNT 8.9 10^3/ul (4.8-10.8)
[2018-08-28 06:10] LABS: ANION GAP 8 (5-13); BLOOD UREA NITROGEN 14 mg/dl (7-20); CALCIUM 9.2 mg/dl (8.4-10.2); CARBON DIOXIDE 25 mmol/L (21-31); CHLORIDE 107 mmol/L (97-110); GLUCOSE 112 mg/dl (70-220); MAGNESIUM 1.9 mg/dl (1.7-2.5); POTASSIUM 3.9 mmol/L (3.5-5.1); SODIUM 140 mmol/L (135-144)
[2018-08-28 07:48] LABS: ERYTHROCYTE SEDIMENTATION RATE 27 mm/Hr (0-20)
[2018-08-28] MEDS: ASPIRIN 81 MG TAB NGT (09:02)
[2018-08-28] MEDS: FUROSEMIDE 20 MG INJ IV (09:02)
[2018-08-28] MEDS: COLLAGENASE 5 GM (UD JAR) TOP (09:02)
[2018-08-28] MEDS: MUPIROCIN 2% 22 GM OINT TOP ×2 (09:02→20:57)
[2018-08-28] MEDS: FAMOTIDINE 20 MG TAB PO ×2 (09:02→20:56)
[2018-08-28] MEDS: FINASTERIDE 5 MG TAB PO (09:02)
[2018-08-28] MEDS: ASCORBIC ACID 500 MG TAB PO ×2 (09:03→20:56)
[2018-08-28] MEDS: FERROUS SULFATE (EC) 325 MG TAB PO ×2 (09:03→20:57)
[2018-08-28] MEDS: MULTIVITAMINS THERAPEUTIC TAB PO (09:03)
[2018-08-28] MEDS: METOPROLOL (XL) 25 MG TAB PO (09:03)
[2018-08-28] MEDS: ENOXAPARIN 40 MG/0.4 ML SYG SC (09:11)
[2018-08-28] MEDS: VANCOMYCIN 1.5 GM in SOD CHLORIDE 0.9% 250 ML IVPB (13:24)
[2018-08-28] MEDS: TAMSULOSIN (SR) 0.4 MG CAP PO (20:56)
[2018-08-29] MEDS: PIPER-TAZO 3.375 GM IV (PMX) 100 ML IVPB ×2 (05:53→14:03)
[2018-08-29] MEDS: morphine LIQ (10 MG/5 ML) CUP PO ×2 (06:05→09:23)
[2018-08-29 06:06] LABS: ADD MAN DIFF? NO
[2018-08-29 06:12] LABS: BASOPHIL # 0.1 10^3/ul (0.0-0.1); BASOPHILS % 0.9 % (0.0-2.0); EOSINOPHILS # 0.1 10^3/ul (0.0-0.5); EOSINOPHILS % 1.6 % (0.0-7.0); HEMATOCRIT 35.3 % (42.0-52.0); HEMOGLOBIN 10.9 g/dl (14.0-18.0); LYMPHOCYTES # 1.5 10^3/ul (0.8-2.9); LYMPHOCYTES % 17.3 % (15.0-51.0); MEAN CORPUSCULAR HEMOGLOBIN 27.4 pg (29.0-33.0); MEAN CORPUSCULAR HGB CONC 30.9 g/dl (32.0-37.0); MEAN CORPUSCULAR VOLUME 88.7 fl (82.0-101.0); MEAN PLATELET VOLUME 9.6 fl (7.4-10.4); MONOCYTE # 0.6 10^3/ul (0.3-0.9); MONOCYTES % 6.5 % (0.0-11.0); NEUTROPHIL # 6.3 10^3/ul (1.6-7.5); NEUTROPHILS % 72.5 % (39.0-77.0); PLATELET COUNT 245 10^3/UL (140-415); RED BLOOD COUNT 3.98 10^6/ul (4.70-6.10); RED CELL DISTRIBUTION WIDTH 15.4 % (11.5-14.5)
[2018-08-29 06:12] LABS: WHITE BLOOD COUNT 8.7 10^3/ul (4.8-10.8)
[2018-08-29 06:56] LABS: ANION GAP 7 (5-13); BLOOD UREA NITROGEN 10 mg/dl (7-20); CALCIUM 9.1 mg/dl (8.4-10.2); CARBON DIOXIDE 25 mmol/L (21-31); CHLORIDE 107 mmol/L (97-110); CREATININE 0.62 mg/dl (0.61-1.24); GLUCOSE 99 mg/dl (70-220); MAGNESIUM 1.8 mg/dl (1.7-2.5); PHOSPHORUS 3.1 mg/dl (2.5-4.9); POTASSIUM 3.8 mmol/L (3.5-5.1); SODIUM 139 mmol/L (135-144)
[2018-08-29] MEDS: FAMOTIDINE 20 MG TAB PO ×2 (09:23→21:27)
[2018-08-29] MEDS: ASPIRIN 81 MG TAB NGT (09:23)
[2018-08-29] MEDS: FINASTERIDE 5 MG TAB PO (09:23)
[2018-08-29] MEDS: FUROSEMIDE 20 MG INJ IV (09:23)
[2018-08-29] MEDS: METOPROLOL (XL) 25 MG TAB PO (09:24)
[2018-08-29] MEDS: ASCORBIC ACID 500 MG TAB PO ×2 (09:25→21:27)
[2018-08-29] MEDS: MULTIVITAMINS THERAPEUTIC TAB PO (09:25)
[2018-08-29] MEDS: ENOXAPARIN 40 MG/0.4 ML SYG SC (09:25)
[2018-08-29] MEDS: FERROUS SULFATE (EC) 325 MG TAB PO ×2 (09:26→21:27)
[2018-08-29] MEDS: COLLAGENASE 5 GM (UD JAR) TOP (09:26)
[2018-08-29] MEDS: MUPIROCIN 2% 22 GM OINT TOP ×2 (09:26→21:31)
[2018-08-29] MEDS ORDERED: D5W + KCL 20 MEQ 1,000 ML IV (11:00)
[2018-08-29 13:05] LABS: VANCOMYCIN,TROUGH 16.4 ug/ml (10.0-20.0)
[2018-08-29] MEDS: VANCOMYCIN 1.5 GM in SOD CHLORIDE 0.9% 250 ML IVPB (16:15)
[2018-08-29] MEDS: CEFEPIME 1GM/50 ML (PMX) 50 ML IVPB (21:25)
[2018-08-29] MEDS: TAMSULOSIN (SR) 0.4 MG CAP PO (21:27)
[2018-08-30] MEDS: D5W + KCL 20 MEQ 1,000 ML IV ×2 (01:48→13:07)
[2018-08-30 06:07] LABS: ADD MAN DIFF? NO
[2018-08-30 06:09] LABS: WHITE BLOOD COUNT 8.2 10^3/ul (4.8-10.8)
[2018-08-30 06:09] LABS: BASOPHIL # 0.1 10^3/ul (0.0-0.1); EOSINOPHILS # 0.1 10^3/ul (0.0-0.5); EOSINOPHILS % 1.3 % (0.0-7.0); HEMATOCRIT 34.7 % (42.0-52.0); HEMOGLOBIN 10.8 g/dl (14.0-18.0); LYMPHOCYTES # 1.2 10^3/ul (0.8-2.9); LYMPHOCYTES % 14.9 % (15.0-51.0); MEAN CORPUSCULAR HEMOGLOBIN 27.6 pg (29.0-33.0); MEAN CORPUSCULAR HGB CONC 31.1 g/dl (32.0-37.0); MEAN CORPUSCULAR VOLUME 88.5 fl (82.0-101.0); MEAN PLATELET VOLUME 9.7 fl (7.4-10.4); MONOCYTE # 0.6 10^3/ul (0.3-0.9); MONOCYTES % 7.3 % (0.0-11.0); NEUTROPHIL # 6.1 10^3/ul (1.6-7.5); NEUTROPHILS % 74.6 % (39.0-77.0); PLATELET COUNT 240 10^3/UL (140-415); RED BLOOD COUNT 3.92 10^6/ul (4.70-6.10); RED CELL DISTRIBUTION WIDTH 15.9 % (11.5-14.5)
[2018-08-30 06:37] LABS: ANION GAP 7 (5-13); BLOOD UREA NITROGEN 9 mg/dl (7-20); CALCIUM 9.2 mg/dl (8.4-10.2); CARBON DIOXIDE 27 mmol/L (21-31); CHLORIDE 107 mmol/L (97-110); CREATININE 0.59 mg/dl (0.61-1.24); GLUCOSE 93 mg/dl (70-220); MAGNESIUM 1.8 mg/dl (1.7-2.5); PHOSPHORUS 2.9 mg/dl (2.5-4.9); POTASSIUM 3.6 mmol/L (3.5-5.1); SODIUM 141 mmol/L (135-144)
[2018-08-30] MEDS: FINASTERIDE 5 MG TAB PO (09:02)
[2018-08-30] MEDS: FAMOTIDINE 20 MG TAB PO ×2 (09:02→21:11)
[2018-08-30] MEDS: FERROUS SULFATE (EC) 325 MG TAB PO ×2 (09:02→21:11)
[2018-08-30] MEDS: ASCORBIC ACID 500 MG TAB PO ×2 (09:03→21:11)
[2018-08-30] MEDS: MULTIVITAMINS THERAPEUTIC TAB PO (09:03)
[2018-08-30] MEDS: ASPIRIN 81 MG TAB NGT (09:03)
[2018-08-30] MEDS: FUROSEMIDE 20 MG INJ IV (09:03)
[2018-08-30] MEDS: METOPROLOL (XL) 25 MG TAB PO (09:03)
[2018-08-30] MEDS: COLLAGENASE 5 GM (UD JAR) TOP (09:03)
[2018-08-30] MEDS: MUPIROCIN 2% 22 GM OINT TOP ×2 (09:04→21:11)
[2018-08-30] MEDS: ENOXAPARIN 40 MG/0.4 ML SYG SC (09:13)
[2018-08-30] MEDS: CEFEPIME 1GM/50 ML (PMX) 50 ML IVPB ×2 (10:30→21:13)
[2018-08-30] MEDS: VANCOMYCIN 1.5 GM in SOD CHLORIDE 0.9% 250 ML IVPB (13:07)
[2018-08-30] MEDS: morphine LIQ (10 MG/5 ML) CUP PO (19:10)
[2018-08-30] MEDS: TAMSULOSIN (SR) 0.4 MG CAP PO (21:11)
[2018-08-31] MEDS: morphine LIQ (10 MG/5 ML) CUP PO ×4 (00:31→22:40)
[2018-08-31] MEDS: ALBUTEROL/IPRATROPIUM (NEB) 3 ML AMP NEB ×5 (00:43→19:50)
[2018-08-31] MEDS: ASCORBIC ACID 500 MG TAB PO ×2 (08:53→21:11)
[2018-08-31] MEDS: FERROUS SULFATE (EC) 325 MG TAB PO ×2 (08:53→21:11)
[2018-08-31] MEDS: MULTIVITAMINS THERAPEUTIC TAB PO (08:53)
[2018-08-31] MEDS: FINASTERIDE 5 MG TAB PO (08:53)
[2018-08-31] MEDS: MUPIROCIN 2% 22 GM OINT TOP ×2 (08:53→21:12)
[2018-08-31] MEDS: FAMOTIDINE 20 MG TAB PO ×2 (08:53→21:11)
[2018-08-31] MEDS: ASPIRIN 81 MG TAB NGT (08:53)
[2018-08-31] MEDS: METOPROLOL (XL) 25 MG TAB PO (08:54)
[2018-08-31] MEDS: COLLAGENASE 5 GM (UD JAR) TOP (08:54)
[2018-08-31] MEDS: FUROSEMIDE 20 MG INJ IV (08:54)
[2018-08-31] MEDS: ENOXAPARIN 40 MG/0.4 ML SYG SC (09:08)
[2018-08-31] MEDS: D5W + KCL 20 MEQ 1,000 ML IV (12:47)
[2018-08-31] MEDS: CEFEPIME 1GM/50 ML (PMX) 50 ML IVPB ×2 (12:48→21:12)
[2018-08-31] MEDS: VANCOMYCIN 1.5 GM in SOD CHLORIDE 0.9% 250 ML IVPB (13:25)
[2018-08-31] MEDS: TAMSULOSIN (SR) 0.4 MG CAP PO (21:11)
[2018-09-01 06:11] LABS: ADD MAN DIFF? NO
[2018-09-01 06:28] LABS: BASOPHIL # 0.1 10^3/ul (0.0-0.1); BASOPHILS % 0.5 % (0.0-2.0); EOSINOPHILS # 0.1 10^3/ul (0.0-0.5); EOSINOPHILS % 1.5 % (0.0-7.0); HEMATOCRIT 33.2 % (42.0-52.0); HEMOGLOBIN 10.4 g/dl (14.0-18.0); LYMPHOCYTES # 1.2 10^3/ul (0.8-2.9); LYMPHOCYTES % 12.6 % (15.0-51.0); MEAN CORPUSCULAR HEMOGLOBIN 27.7 pg (29.0-33.0); MEAN CORPUSCULAR HGB CONC 31.3 g/dl (32.0-37.0); MEAN CORPUSCULAR VOLUME 88.5 fl (82.0-101.0); MEAN PLATELET VOLUME 9.9 fl (7.4-10.4); MONOCYTE # 0.8 10^3/ul (0.3-0.9); MONOCYTES % 8.2 % (0.0-11.0); NEUTROPHILS % 76.7 % (39.0-77.0); PLATELET COUNT 239 10^3/UL (140-415); RED BLOOD COUNT 3.75 10^6/ul (4.70-6.10); RED CELL DISTRIBUTION WIDTH 16.5 % (11.5-14.5)
[2018-09-01 06:28] LABS: WHITE BLOOD COUNT 9.2 10^3/ul (4.8-10.8)
[2018-09-01 06:51] LABS: ANION GAP 7 (5-13); BLOOD UREA NITROGEN 11 mg/dl (7-20); CALCIUM 9.4 mg/dl (8.4-10.2); CARBON DIOXIDE 26 mmol/L (21-31); CHLORIDE 107 mmol/L (97-110); CREATININE 0.82 mg/dl (0.61-1.24); GLUCOSE 97 mg/dl (70-220); MAGNESIUM 1.8 mg/dl (1.7-2.5); PHOSPHORUS 3.2 mg/dl (2.5-4.9); POTASSIUM 3.8 mmol/L (3.5-5.1); SODIUM 140 mmol/L (135-144)
[2018-09-01] MEDS: D5W + KCL 20 MEQ 1,000 ML IV (08:09)
[2018-09-01] MEDS: COLLAGENASE 5 GM (UD JAR) TOP (09:00)
[2018-09-01] MEDS: MULTIVITAMINS THERAPEUTIC TAB PO (09:50)
[2018-09-01] MEDS: FINASTERIDE 5 MG TAB PO (09:50)
[2018-09-01] MEDS: ASPIRIN 81 MG TAB NGT (09:50)
[2018-09-01] MEDS: METOPROLOL (XL) 25 MG TAB PO (09:51)
[2018-09-01] MEDS: morphine LIQ (10 MG/5 ML) CUP PO (09:51)
[2018-09-01] MEDS: FAMOTIDINE 20 MG TAB PO (09:51)
[2018-09-01] MEDS: ASCORBIC ACID 500 MG TAB PO (09:51)
[2018-09-01] MEDS: FERROUS SULFATE (EC) 325 MG TAB PO (09:51)
[2018-09-01] MEDS: FUROSEMIDE 20 MG INJ IV (09:52)
[2018-09-01] MEDS: CEFEPIME 1GM/50 ML (PMX) 50 ML IVPB (09:52)
[2018-09-01] MEDS: MUPIROCIN 2% 22 GM OINT TOP (09:52)
[2018-09-01] MEDS: ENOXAPARIN 40 MG/0.4 ML SYG SC (09:57)
[2018-09-01] MEDS: VANCOMYCIN 1.5 GM in SOD CHLORIDE 0.9% 250 ML IVPB (13:03)
[2018-09-01] MEDS: ALBUTEROL/IPRATROPIUM (NEB) 3 ML AMP NEB (16:38)
== END 2018-09-01 18:55 | DRG 871 ==
LOC: ICU 19:51 → 6WM 08-25 18:06 → E/R 17:50
PROC: 5A1945Z Respiratory Ventilation, 24-96 Consecutive Hours (ICD-10-PCS; principal; 2018-08-20)
PROC: 0BH18EZ Insertion of Endotracheal Airway into Trachea, Via Natural or Artificial Opening Endoscopic (ICD-10-PCS; 2018-08-20)
PROC: 5A09457 Assistance with Respiratory Ventilation, 24-96 Consecutive Hours, Continuous Positive Airway Pressure (ICD-10-PCS; 2018-08-24)
DX: A41.9 Sepsis, unspecified organism (principal); J18.9 Pneumonia, unspecified organism; L89.154 Pressure ulcer of sacral region, stage 4; R65.21 Severe sepsis with septic shock; G92 Toxic encephalopathy; I50.43 Acute on chronic combined systolic (congestive) and diastolic (congestive) heart failure; J96.21 Acute and chronic respiratory failure with hypoxia; I42.9 Cardiomyopathy, unspecified; I13.0 Hypertensive heart and chronic kidney disease with heart failure and stage 1 through stage 4 chronic kidney disease, or unspecified chronic kidney disease; N39.0 Urinary tract infection, site not specified; E87.0 Hyperosmolality and hypernatremia; I25.10 Atherosclerotic heart disease of native coronary artery without angina pectoris; N40.0 Benign prostatic hyperplasia without lower urinary tract symptoms; J44.9 Chronic obstructive pulmonary disease, unspecified; G89.4 Chronic pain syndrome; N18.3 Chronic kidney disease, stage 3 (moderate); I48.91 Unspecified atrial fibrillation; E87.6 Hypokalemia; D63.1 Anemia in chronic kidney disease; R13.10 Dysphagia, unspecified; Z95.5 Presence of coronary angioplasty implant and graft; Z95.810 Presence of automatic (implantable) cardiac defibrillator
CPT/HCPCS: 31500; 36600; 71045; 71275; 80048; 80053; 80202; 81001; 81003; 82043; 82803; 82962; 83605; 83735; 84100; 84145; 84155; 84300; 84484; 85025; 85610; 85651; 85730; 87040; 87045; 87070; 87081; 87086; 89220; 93005; 94002; 94003; 94640; 94644; 94660; 94664; 94770; 96365; 96366; 96368; 99291-25

== ENCOUNTER 2018-09-27 19:35 | Inpatient (IN) | payer MEDICARE, OTHER ==
[2018-09-27] MEDS ORDERED: BISACODYL (EC) 5 MG TAB PO (20:00)
[2018-09-27] MEDS ORDERED: NACL 0.9% 3 ML SYG IV (20:00)
[2018-09-27] MEDS ORDERED: ACETAMINOPHEN 325 MG TAB PO (20:00)
[2018-09-27] MEDS ORDERED: ONDANSETRON 4 MG INJ IV (20:00)
[2018-09-27 20:30] LABS: ADD MAN DIFF? NO
[2018-09-27 20:31] LABS: ABNORMAL IP MESSAGE 1; BASOPHILS % 0.2 % (0.0-2.0); HEMATOCRIT 37.9 % (42.0-52.0); HEMOGLOBIN 11.3 g/dl (14.0-18.0); LYMPHOCYTES # 0.2 10^3/ul (0.8-2.9); MEAN CORPUSCULAR HEMOGLOBIN 28.1 pg (29.0-33.0); MEAN CORPUSCULAR HGB CONC 29.8 g/dl (32.0-37.0); MEAN CORPUSCULAR VOLUME 94.3 fl (82.0-101.0); MEAN PLATELET VOLUME 8.9 fl (7.4-10.4); MONOCYTE # 0.1 10^3/ul (0.3-0.9); NEUTROPHIL # 5.4 10^3/ul (1.6-7.5); NEUTROPHILS % 94.5 % (39.0-77.0); PLATELET COUNT 165 10^3/UL (140-415); POSITIVE DIFF @See below; RED BLOOD COUNT 4.02 10^6/ul (4.70-6.10); RED CELL DISTRIBUTION WIDTH 18.9 % (11.5-14.5)
[2018-09-27 20:31] LABS: WHITE BLOOD COUNT 5.7 10^3/ul (4.8-10.8)
[2018-09-27] MEDS: APIXABAN 5 MG TABLET PO (20:50)
[2018-09-27] MEDS: ASCORBIC ACID 500 MG TAB PO (20:50)
[2018-09-27 20:51] LABS: ANION GAP 10 (5-13); BILIRUBIN,TOTAL 0.5 mg/dl (0.2-1.3)
[2018-09-27 21:21] LABS: BLOOD UREA NITROGEN 37 mg/dl (7-20); CARBON DIOXIDE 37 mmol/L (21-31); CHLORIDE 95 mmol/L (97-110); CREATININE 1.18 mg/dl (0.61-1.24); GLUCOSE 177 mg/dl (70-220); POTASSIUM 4.2 mmol/L (3.5-5.1); SODIUM 142 mmol/L (135-144)
[2018-09-27 21:22] LABS: ALANINE AMINOTRANSFERASE 24 IU/L (13-69); ALBUMIN 3.5 g/dl (3.3-4.9); ALKALINE PHOSPHATASE 73 IU/L (42-121); ASPARTATE AMINO TRANSFERASE 27 IU/L (15-46); BILIRUBIN,INDIRECT 0.5 mg/dl (0-1.1); CALCIUM 9.3 mg/dl (8.4-10.2); TOTAL PROTEIN 6.4 g/dl (6.1-8.1)
[2018-09-27] MEDS ORDERED: HEPARIN 5,000 UNIT/1 ML VIAL SC (22:00)
[2018-09-28] MEDS ORDERED: VANCOMYCIN IV PER PHARMACY XX
[2018-09-28] MEDS ORDERED: ALBUTEROL/IPRATROPIUM (NEB) 3 ML AMP NEB (00:30)
[2018-09-28] MEDS: CEFTAZIDIME 2GM/50 ML (PMX) 50 ML IVPB ×3 (00:42→13:02)
[2018-09-28 01:44] LABS: VANCOMYCIN,RANDOM 14.9 ug/ml
[2018-09-28] MEDS ORDERED: PENDING SANTYL ORDER FOR WOUND CARE XX (02:30)
[2018-09-28] MEDS: VANCOMYCIN 1.25 GM in SOD CHLORIDE 0.9% 250 ML IVPB (02:58)
[2018-09-28] MEDS: traMADol 50 MG TAB PO ×2 (02:59→09:59)
[2018-09-28 06:48] LABS: ADD MAN DIFF? NO
[2018-09-28 06:52] LABS: ABNORMAL IP MESSAGE 1; LYMPHOCYTES # 0.4 10^3/ul (0.8-2.9); LYMPHOCYTES % 7.4 % (15.0-51.0); MEAN CORPUSCULAR HEMOGLOBIN 28.4 pg (29.0-33.0); MEAN CORPUSCULAR HGB CONC 30.6 g/dl (32.0-37.0); MEAN CORPUSCULAR VOLUME 92.8 fl (82.0-101.0); MEAN PLATELET VOLUME 10.5 fl (7.4-10.4); MONOCYTE # 0.4 10^3/ul (0.3-0.9); MONOCYTES % 8.2 % (0.0-11.0); NEUTROPHIL # 4.1 10^3/ul (1.6-7.5); NEUTROPHILS % 83.6 % (39.0-77.0); PLATELET COUNT 180 10^3/UL (140-415); POSITIVE DIFF @See below; RED BLOOD COUNT 3.88 10^6/ul (4.70-6.10); RED CELL DISTRIBUTION WIDTH 18.8 % (11.5-14.5)
[2018-09-28 06:52] LABS: WHITE BLOOD COUNT 4.9 10^3/ul (4.8-10.8)
[2018-09-28 07:07] LABS: ALANINE AMINOTRANSFERASE 26 IU/L (13-69); ALBUMIN 3.2 g/dl (3.3-4.9); ALBUMIN/GLOBULIN RATIO 1.06; ALKALINE PHOSPHATASE 68 IU/L (42-121); ANION GAP 9 (5-13); ASPARTATE AMINO TRANSFERASE 26 IU/L (15-46); BILIRUBIN,INDIRECT 0.4 mg/dl (0-1.1); BILIRUBIN,TOTAL 0.4 mg/dl (0.2-1.3); BLOOD UREA NITROGEN 41 mg/dl (7-20); CALCIUM 9.1 mg/dl (8.4-10.2); CARBON DIOXIDE 35 mmol/L (21-31); CHLORIDE 99 mmol/L (97-110); CREATININE 1.09 mg/dl (0.61-1.24); GLUCOSE 124 mg/dl (70-220); POTASSIUM 3.8 mmol/L (3.5-5.1); SODIUM 143 mmol/L (135-144); TOTAL PROTEIN 6.2 g/dl (6.1-8.1)
[2018-09-28] MEDS: DILTIAZEM (CD) 120 MG CAP PO (09:58)
[2018-09-28] MEDS: DOCUSATE SODIUM 100 MG CAP PO (09:58)
[2018-09-28] MEDS: FINASTERIDE 5 MG TAB PO (09:58)
[2018-09-28] MEDS: FERROUS SULFATE (EC) 325 MG TAB PO ×2 (09:58→21:26)
[2018-09-28] MEDS: APIXABAN 5 MG TABLET PO ×2 (09:59→21:26)
[2018-09-28] MEDS: BUMETANIDE 1 MG TAB PO (09:59)
[2018-09-28] MEDS: ASCORBIC ACID 500 MG TAB PO ×2 (09:59→21:26)
[2018-09-28] MEDS: DOXYCYCLINE 100 MG in SOD CHLORIDE 0.9% 250 ML IVPB (10:21)
[2018-09-28 11:11] LABS: AADO2 Arterial 93.6 mmHg (7.0-24.0); Allen Test ACCEPTAB; Arterial Base Excess 3.6 mmol/L (-3.0-3); Arterial Blood Gas Oxygen Sat 93.4 mmHG (95.0-100.0); Arterial COHb 0.5 % (0.0-3.0); Arterial Fraction of Oxyhgb 92.7 % (93.0-99.0); Arterial HCO3 28.7 mmol/L (22.0-26.0); Arterial MetHb 0.2 % (0.0-1.5); Arterial Total Hemglobin 12.8 g/dl (12.0-18.0); Arterial pCO2 45.3 mmhg (35-45); MODE NASAL CANNULA; Site Right Radial
[2018-09-28] MEDS: TAMSULOSIN (SR) 0.4 MG CAP PO (21:26)
[2018-09-29] MEDS: morphine 2 MG INJ IV ×7 (03:11→23:56)
[2018-09-29 09:32] LABS: ADD MAN DIFF? NO
[2018-09-29 09:37] LABS: WHITE BLOOD COUNT 9.4 10^3/ul (4.8-10.8)
[2018-09-29 09:37] LABS: BASOPHILS % 0.1 % (0.0-2.0); EOSINOPHILS # 0.2 10^3/ul (0.0-0.5); EOSINOPHILS % 1.8 % (0.0-7.0); HEMOGLOBIN 11.3 g/dl (14.0-18.0); LYMPHOCYTES # 0.7 10^3/ul (0.8-2.9); LYMPHOCYTES % 7.1 % (15.0-51.0); MEAN CORPUSCULAR HGB CONC 29.7 g/dl (32.0-37.0); MEAN CORPUSCULAR VOLUME 94.1 fl (82.0-101.0); MEAN PLATELET VOLUME 9.5 fl (7.4-10.4); MONOCYTE # 0.6 10^3/ul (0.3-0.9); MONOCYTES % 6.3 % (0.0-11.0); NEUTROPHIL # 7.9 10^3/ul (1.6-7.5); NEUTROPHILS % 84.3 % (39.0-77.0); PLATELET COUNT 153 10^3/UL (140-415); RED BLOOD COUNT 4.04 10^6/ul (4.70-6.10); RED CELL DISTRIBUTION WIDTH 19.1 % (11.5-14.5)
[2018-09-29 10:04] LABS: ANION GAP 9 (5-13); BLOOD UREA NITROGEN 41 mg/dl (7-20); CARBON DIOXIDE 35 mmol/L (21-31); CHLORIDE 99 mmol/L (97-110); CREATININE 1.01 mg/dl (0.61-1.24); GLUCOSE 117 mg/dl (70-220); MAGNESIUM 1.9 mg/dl (1.7-2.5); PHOSPHORUS 2.4 mg/dl (2.5-4.9); POTASSIUM 3.1 mmol/L (3.5-5.1); SODIUM 143 mmol/L (135-144)
[2018-09-29] MEDS: DOCUSATE SODIUM 100 MG CAP PO (10:25)
[2018-09-29] MEDS: FERROUS SULFATE (EC) 325 MG TAB PO ×2 (10:25→21:00)
[2018-09-29] MEDS: FINASTERIDE 5 MG TAB PO (10:25)
[2018-09-29] MEDS: DILTIAZEM (CD) 120 MG CAP PO (10:26)
[2018-09-29] MEDS: ASCORBIC ACID 500 MG TAB PO ×2 (10:26→21:00)
[2018-09-29] MEDS: BUMETANIDE 1 MG TAB PO (10:26)
[2018-09-29] MEDS: APIXABAN 5 MG TABLET PO ×2 (10:27→21:00)
[2018-09-29] MEDS: SOD PHOS MONO/DIBAS 250 MG TAB PO (15:28)
[2018-09-29] MEDS: POTASSIUM CHLORIDE (SR) 20 MEQ TAB PO (15:28)
[2018-09-29] MEDS: TAMSULOSIN (SR) 0.4 MG CAP PO (21:00)
[2018-09-30] MEDS: morphine 2 MG INJ IV ×6 (03:39→19:42)
[2018-09-30 06:26] LABS: ADD MAN DIFF? NO
[2018-09-30 06:32] LABS: BASOPHILS % 0.1 % (0.0-2.0); EOSINOPHILS # 0.5 10^3/ul (0.0-0.5); EOSINOPHILS % 3.3 % (0.0-7.0); HEMATOCRIT 40.2 % (42.0-52.0); HEMOGLOBIN 12.2 g/dl (14.0-18.0); LYMPHOCYTES % 7.3 % (15.0-51.0); MEAN CORPUSCULAR HEMOGLOBIN 28.5 pg (29.0-33.0); MEAN CORPUSCULAR HGB CONC 30.3 g/dl (32.0-37.0); MEAN CORPUSCULAR VOLUME 93.9 fl (82.0-101.0); MEAN PLATELET VOLUME 9.9 fl (7.4-10.4); MONOCYTE # 1.1 10^3/ul (0.3-0.9); NEUTROPHILS % 80.9 % (39.0-77.0); PLATELET COUNT 166 10^3/UL (140-415); RED BLOOD COUNT 4.28 10^6/ul (4.70-6.10); RED CELL DISTRIBUTION WIDTH 18.7 % (11.5-14.5)
[2018-09-30 06:32] LABS: WHITE BLOOD COUNT 13.6 10^3/ul (4.8-10.8)
[2018-09-30 07:03] LABS: ANION GAP 5 (5-13); BLOOD UREA NITROGEN 38 mg/dl (7-20); CALCIUM 9.1 mg/dl (8.4-10.2); CHLORIDE 98 mmol/L (97-110); CREATININE 0.92 mg/dl (0.61-1.24); GLUCOSE 97 mg/dl (70-220); MAGNESIUM 1.9 mg/dl (1.7-2.5); PHOSPHORUS 2.6 mg/dl (2.5-4.9); POTASSIUM 3.6 mmol/L (3.5-5.1); SODIUM 143 mmol/L (135-144)
[2018-09-30 07:07] LABS: CARBON DIOXIDE 40 mmol/L (21-31)
[2018-09-30] MEDS: DOCUSATE SODIUM 100 MG CAP PO (08:53)
[2018-09-30] MEDS: ASCORBIC ACID 500 MG TAB PO ×2 (08:54→20:48)
[2018-09-30] MEDS: DILTIAZEM (CD) 120 MG CAP PO (08:54)
[2018-09-30] MEDS: APIXABAN 5 MG TABLET PO ×2 (08:55→20:48)
[2018-09-30] MEDS: BUMETANIDE 1 MG TAB PO (08:55)
[2018-09-30] MEDS: FINASTERIDE 5 MG TAB PO (08:55)
[2018-09-30] MEDS: FERROUS SULFATE (EC) 325 MG TAB PO ×2 (09:11→20:48)
[2018-09-30] MEDS: NA PHOSPHATE/BIPHOS 133 ML ENEMA PR (10:15)
[2018-09-30] MEDS: BUMETANIDE 6 MG in DEXTROSE 5% 36 ML IV (13:05)
[2018-09-30] MEDS: TAMSULOSIN (SR) 0.4 MG CAP PO (20:48)
[2018-10-01 06:27] LABS: WHITE BLOOD COUNT 8.8 10^3/ul (4.8-10.8)
[2018-10-01 06:27] LABS: ADD MAN DIFF? NO; BASOPHIL # 0.1 10^3/ul (0.0-0.1); BASOPHILS % 0.6 % (0.0-2.0); EOSINOPHILS # 0.3 10^3/ul (0.0-0.5); EOSINOPHILS % 3.6 % (0.0-7.0); HEMATOCRIT 38.6 % (42.0-52.0); HEMOGLOBIN 11.7 g/dl (14.0-18.0); LYMPHOCYTES % 10.9 % (15.0-51.0); MEAN CORPUSCULAR HEMOGLOBIN 28.2 pg (29.0-33.0); MEAN CORPUSCULAR HGB CONC 30.3 g/dl (32.0-37.0); MEAN PLATELET VOLUME 10.3 fl (7.4-10.4); MONOCYTE # 0.8 10^3/ul (0.3-0.9); MONOCYTES % 8.6 % (0.0-11.0); NEUTROPHIL # 6.7 10^3/ul (1.6-7.5); PLATELET COUNT 150 10^3/UL (140-415); RED BLOOD COUNT 4.15 10^6/ul (4.70-6.10); RED CELL DISTRIBUTION WIDTH 18.6 % (11.5-14.5)
[2018-10-01 06:52] LABS: BLOOD UREA NITROGEN 30 mg/dl (7-20); CALCIUM 8.7 mg/dl (8.4-10.2); CHLORIDE 95 mmol/L (97-110); GLUCOSE 90 mg/dl (70-220); MAGNESIUM 1.8 mg/dl (1.7-2.5); PHOSPHORUS 2.8 mg/dl (2.5-4.9); SODIUM 143 mmol/L (135-144)
[2018-10-01 07:03] LABS: ANION GAP 6 (5-13); CARBON DIOXIDE 42 mmol/L (21-31); POTASSIUM 2.9 mmol/L (3.5-5.1)
[2018-10-01] MEDS: morphine 2 MG INJ IV ×5 (07:53→23:07)
[2018-10-01] MEDS: POTASSIUM CHLORIDE (SR) 20 MEQ TAB PO (07:58)
[2018-10-01 08:12] LABS: AADO2 Arterial 136.2 mmHg (7.0-24.0); Arterial Base Excess 14.6 mmol/L (-3.0-3); Arterial Blood Gas Oxygen Sat 96.6 mmHG (95.0-100.0); Arterial COHb 1.7 % (0.0-3.0); Arterial Fraction of Oxyhgb 94.7 % (93.0-99.0); Arterial HCO3 40.9 mmol/L (22.0-26.0); Arterial MetHb 0.3 % (0.0-1.5); Arterial Total Hemglobin 13.6 g/dl (12.0-18.0); Arterial pCO2 57.5 mmhg (35-45); Blood Gas IEPAP 16/5; MODE MASK - BIPAP; Site Right Brachial
[2018-10-01] MEDS: DOCUSATE SODIUM 100 MG CAP PO (09:01)
[2018-10-01] MEDS: ASCORBIC ACID 500 MG TAB PO ×2 (09:01→20:46)
[2018-10-01] MEDS: FERROUS SULFATE (EC) 325 MG TAB PO ×2 (09:01→20:46)
[2018-10-01] MEDS: DILTIAZEM (CD) 120 MG CAP PO (09:02)
[2018-10-01] MEDS: FINASTERIDE 5 MG TAB PO (09:02)
[2018-10-01] MEDS: APIXABAN 5 MG TABLET PO ×2 (09:02→20:46)
[2018-10-01 15:58] LABS: BLOOD UREA NITROGEN 37 mg/dl (7-20); CALCIUM 8.8 mg/dl (8.4-10.2); CHLORIDE 92 mmol/L (97-110); CREATININE 0.81 mg/dl (0.61-1.24); GLUCOSE 94 mg/dl (70-220); POTASSIUM 3.9 mmol/L (3.5-5.1); SODIUM 141 mmol/L (135-144)
[2018-10-01 16:17] LABS: ANION GAP 5 (5-13); CARBON DIOXIDE 44 mmol/L (21-31)
[2018-10-01 16:29] LABS: INR 1.63; PROTIME 19.7 Sec (11.9-14.9); PT RATIO 1.5
[2018-10-01] MEDS: TAMSULOSIN (SR) 0.4 MG CAP PO (20:46)
[2018-10-02] MEDS: morphine 2 MG INJ IV ×5 (06:05→21:58)
[2018-10-02 06:06] LABS: ADD MAN DIFF? NO
[2018-10-02 06:12] LABS: WHITE BLOOD COUNT 10.2 10^3/ul (4.8-10.8)
[2018-10-02 06:12] LABS: BASOPHIL # 0.1 10^3/ul (0.0-0.1); BASOPHILS % 0.5 % (0.0-2.0); EOSINOPHILS # 0.4 10^3/ul (0.0-0.5); EOSINOPHILS % 4.3 % (0.0-7.0); HEMATOCRIT 37.4 % (42.0-52.0); HEMOGLOBIN 11.6 g/dl (14.0-18.0); LYMPHOCYTES # 1.3 10^3/ul (0.8-2.9); LYMPHOCYTES % 12.7 % (15.0-51.0); MEAN CORPUSCULAR HEMOGLOBIN 28.6 pg (29.0-33.0); MEAN CORPUSCULAR VOLUME 92.1 fl (82.0-101.0); MEAN PLATELET VOLUME 10.5 fl (7.4-10.4); MONOCYTES % 9.8 % (0.0-11.0); NEUTROPHIL # 7.4 10^3/ul (1.6-7.5); NEUTROPHILS % 72.4 % (39.0-77.0); PLATELET COUNT 155 10^3/UL (140-415); RED BLOOD COUNT 4.06 10^6/ul (4.70-6.10); RED CELL DISTRIBUTION WIDTH 18.4 % (11.5-14.5)
[2018-10-02 07:08] LABS: BLOOD UREA NITROGEN 42 mg/dl (7-20); CALCIUM 8.9 mg/dl (8.4-10.2); CHLORIDE 94 mmol/L (97-110); CREATININE 0.83 mg/dl (0.61-1.24); GLUCOSE 89 mg/dl (70-220); MAGNESIUM 1.9 mg/dl (1.7-2.5); PHOSPHORUS 2.6 mg/dl (2.5-4.9); POTASSIUM 3.6 mmol/L (3.5-5.1); SODIUM 140 mmol/L (135-144)
[2018-10-02 07:30] LABS: ANION GAP 5 (5-13); CARBON DIOXIDE 41 mmol/L (21-31)
[2018-10-02] MEDS: FINASTERIDE 5 MG TAB PO (08:08)
[2018-10-02] MEDS: FERROUS SULFATE (EC) 325 MG TAB PO ×2 (08:09→20:33)
[2018-10-02] MEDS: DILTIAZEM (CD) 120 MG CAP PO (08:09)
[2018-10-02] MEDS: DOCUSATE SODIUM 100 MG CAP PO (08:10)
[2018-10-02] MEDS: APIXABAN 5 MG TABLET PO ×2 (08:10→20:32)
[2018-10-02] MEDS: ASCORBIC ACID 500 MG TAB PO ×2 (08:10→20:32)
[2018-10-02] MEDS: SPIRONOLACTONE 25 MG TAB PO (08:15)
[2018-10-02] MEDS: POTASSIUM CHLORIDE (SR) 20 MEQ TAB PO (08:16)
[2018-10-02] MEDS: LIDOCAINE 1% (MPF) 5 ML VIAL (11:07)
[2018-10-02] MEDS: ACETAZOLAMIDE 500 MG INJ IV (13:02)
[2018-10-02 13:20] LABS: FLD MN% 72.8 %; FLD PMN% 27.2 %; FLD RBC 8000 /uL; FLD WBC 169 /cmm
[2018-10-02 13:25] LABS: FLD TYPE THORACENTHESIS
[2018-10-02 13:25] LABS: FLD CLARITY HAZY
[2018-10-02 13:26] LABS: FLD COLOR YELLOW
[2018-10-02 13:46] LABS: FLUID GLUCOSE 101 mg/dl
[2018-10-02 13:47] LABS: FLUID TYPE THORACENTESIS FLUID
[2018-10-02 13:48] LABS: FLUID LD 200 U/L; FLUID TOTAL PROTEIN < 2.0 g/dl; FLUID TYPE THORACENTESIS FLUID
[2018-10-02] MEDS: TAMSULOSIN (SR) 0.4 MG CAP PO (20:32)
[2018-10-03] MEDS: morphine 2 MG INJ IV ×5 (04:14→20:11)
[2018-10-03 06:16] LABS: ADD MAN DIFF? NO
[2018-10-03 06:29] LABS: BASOPHIL # 0.1 10^3/ul (0.0-0.1); BASOPHILS % 0.6 % (0.0-2.0); EOSINOPHILS # 0.5 10^3/ul (0.0-0.5); EOSINOPHILS % 5.6 % (0.0-7.0); HEMATOCRIT 36.8 % (42.0-52.0); HEMOGLOBIN 11.2 g/dl (14.0-18.0); LYMPHOCYTES # 1.2 10^3/ul (0.8-2.9); LYMPHOCYTES % 13.1 % (15.0-51.0); MEAN CORPUSCULAR HEMOGLOBIN 28.1 pg (29.0-33.0); MEAN CORPUSCULAR HGB CONC 30.4 g/dl (32.0-37.0); MEAN CORPUSCULAR VOLUME 92.5 fl (82.0-101.0); MEAN PLATELET VOLUME 10.6 fl (7.4-10.4); MONOCYTE # 0.9 10^3/ul (0.3-0.9); MONOCYTES % 10.2 % (0.0-11.0); NEUTROPHIL # 6.2 10^3/ul (1.6-7.5); PLATELET COUNT 155 10^3/UL (140-415); RED BLOOD COUNT 3.98 10^6/ul (4.70-6.10); RED CELL DISTRIBUTION WIDTH 18.2 % (11.5-14.5)
[2018-10-03 06:29] LABS: WHITE BLOOD COUNT 8.8 10^3/ul (4.8-10.8)
[2018-10-03 07:08] LABS: ANION GAP 6 (5-13); BLOOD UREA NITROGEN 38 mg/dl (7-20); CALCIUM 8.6 mg/dl (8.4-10.2); CARBON DIOXIDE 36 mmol/L (21-31); CHLORIDE 97 mmol/L (97-110); CREATININE 0.96 mg/dl (0.61-1.24); GLUCOSE 89 mg/dl (70-220); MAGNESIUM 1.9 mg/dl (1.7-2.5); PHOSPHORUS 3.4 mg/dl (2.5-4.9); SODIUM 139 mmol/L (135-144)
[2018-10-03] MEDS: ACETAZOLAMIDE 500 MG INJ IV (08:22)
[2018-10-03] MEDS: DOCUSATE SODIUM 100 MG CAP PO (08:22)
[2018-10-03] MEDS: APIXABAN 5 MG TABLET PO ×2 (08:22→20:10)
[2018-10-03] MEDS: ASCORBIC ACID 500 MG TAB PO ×2 (08:23→20:10)
[2018-10-03] MEDS: FINASTERIDE 5 MG TAB PO (08:23)
[2018-10-03] MEDS: DILTIAZEM (CD) 120 MG CAP PO (08:23)
[2018-10-03] MEDS: SPIRONOLACTONE 25 MG TAB PO (08:23)
[2018-10-03] MEDS: FERROUS SULFATE (EC) 325 MG TAB PO ×2 (08:23→20:10)
[2018-10-03] MEDS: TAMSULOSIN (SR) 0.4 MG CAP PO (20:10)
[2018-10-04] MEDS: morphine 2 MG INJ IV ×4 (06:14→16:55)
[2018-10-04 06:41] LABS: ADD MAN DIFF? NO
[2018-10-04 06:45] LABS: BASOPHIL # 0.1 10^3/ul (0.0-0.1); BASOPHILS % 0.6 % (0.0-2.0); EOSINOPHILS # 0.5 10^3/ul (0.0-0.5); EOSINOPHILS % 5.8 % (0.0-7.0); HEMATOCRIT 37.8 % (42.0-52.0); HEMOGLOBIN 11.6 g/dl (14.0-18.0); LYMPHOCYTES # 1.2 10^3/ul (0.8-2.9); LYMPHOCYTES % 13.4 % (15.0-51.0); MEAN CORPUSCULAR HEMOGLOBIN 28.3 pg (29.0-33.0); MEAN CORPUSCULAR HGB CONC 30.7 g/dl (32.0-37.0); MEAN CORPUSCULAR VOLUME 92.2 fl (82.0-101.0); MEAN PLATELET VOLUME 10.4 fl (7.4-10.4); MONOCYTE # 0.8 10^3/ul (0.3-0.9); MONOCYTES % 9.5 % (0.0-11.0); NEUTROPHIL # 6.1 10^3/ul (1.6-7.5); NEUTROPHILS % 70.2 % (39.0-77.0); PLATELET COUNT 139 10^3/UL (140-415)
[2018-10-04 06:45] LABS: WHITE BLOOD COUNT 8.6 10^3/ul (4.8-10.8)
[2018-10-04 07:17] LABS: ANION GAP 7 (5-13); BLOOD UREA NITROGEN 45 mg/dl (7-20); CALCIUM 9.3 mg/dl (8.4-10.2); CARBON DIOXIDE 28 mmol/L (21-31); CHLORIDE 105 mmol/L (97-110); CREATININE 0.99 mg/dl (0.61-1.24); GLUCOSE 91 mg/dl (70-220); MAGNESIUM 2.2 mg/dl (1.7-2.5); PHOSPHORUS 3.6 mg/dl (2.5-4.9); POTASSIUM 4.2 mmol/L (3.5-5.1); SODIUM 140 mmol/L (135-144)
[2018-10-04] MEDS: ACETAZOLAMIDE 500 MG INJ IV (08:41)
[2018-10-04] MEDS: FINASTERIDE 5 MG TAB PO (08:41)
[2018-10-04] MEDS: APIXABAN 5 MG TABLET PO (08:42)
[2018-10-04] MEDS: FERROUS SULFATE (EC) 325 MG TAB PO (08:42)
[2018-10-04] MEDS: SPIRONOLACTONE 25 MG TAB PO (08:42)
[2018-10-04] MEDS: DILTIAZEM (CD) 120 MG CAP PO (08:42)
[2018-10-04] MEDS: ASCORBIC ACID 500 MG TAB PO (08:42)
[2018-10-04] MEDS: DOCUSATE SODIUM 100 MG CAP PO (08:42)
[2018-10-04] MEDS: LISINOPRIL 5 MG TAB PO (10:27)
== END 2018-10-04 17:35 | disposition short-term general hospital (02) | DRG 291 ==
LOC: TEL 09-30 12:00
PROC: 5A09557 Assistance with Respiratory Ventilation, Greater than 96 Consecutive Hours, Continuous Positive Airway Pressure (ICD-10-PCS; principal; 2018-09-27)
PROC: 0W993ZX Drainage of Right Pleural Cavity, Percutaneous Approach, Diagnostic (ICD-10-PCS; 2018-10-02)
DX: I13.0 Hypertensive heart and chronic kidney disease with heart failure and stage 1 through stage 4 chronic kidney disease, or unspecified chronic kidney disease (principal); L89.154 Pressure ulcer of sacral region, stage 4; I50.23 Acute on chronic systolic (congestive) heart failure; J18.9 Pneumonia, unspecified organism; J96.21 Acute and chronic respiratory failure with hypoxia; N17.9 Acute kidney failure, unspecified; J44.1 Chronic obstructive pulmonary disease with (acute) exacerbation; J90 Pleural effusion, not elsewhere classified; E87.3 Alkalosis; N18.3 Chronic kidney disease, stage 3 (moderate); I48.91 Unspecified atrial fibrillation; I25.10 Atherosclerotic heart disease of native coronary artery without angina pectoris; N40.0 Benign prostatic hyperplasia without lower urinary tract symptoms; D63.1 Anemia in chronic kidney disease; G89.4 Chronic pain syndrome; Z95.810 Presence of automatic (implantable) cardiac defibrillator; I27.20 Pulmonary hypertension, unspecified; Z95.5 Presence of coronary angioplasty implant and graft; I25.5 Ischemic cardiomyopathy; H53.8 Other visual disturbances; E83.89 Other disorders of mineral metabolism; E87.6 Hypokalemia
CPT/HCPCS: 36600; 70450; 71045; 76942; 80048; 80053; 80202; 82803; 82945; 82962; 83615; 83735; 84100; 84157; 85025; 85610; 87070; 87086; 87102; 87116; 88104; 88305; 89051; 94660